=== PATIENT | male | born 1970 | race Caucasian/White ===

== ENCOUNTER → 2017-11-24 10:18 | Outpatient (POV) | payer MEDICAID, SELFPAY | PROVIDERS: Family Provider Emergency Medicine; Visit Provider Dentist | DX: Z00.00 Encounter for general adult medical examination without abnormal findings (principal) ==

== ENCOUNTER → 2018-06-06 15:49 | Outpatient (REF) | payer MEDICAID, SELFPAY ==
[2018-06-06 17:44] LABS: Amphetamine/Metha Screen,Urine Positive ng/mL (<1000); Barbiturates Screen,Urine Negative ng/mL (<200); Benzodiazepines Screen,Urine Negative ng/mL (<200); Cannabinoid Screen,Urine Positive ng/mL (<50); Cocaine Screen,Urine Negative ng/mL (<300); Methadone Screen,Urine Negative ng/mL (<300); Opiate Screen,Urine Positive ng/mL (<300); Phencyclidine Screen,Urine Negative ng/mL (<25)
== END ==
LOC: LAB 15:49
PROVIDERS: Visit Provider Nurse Practitioner Family
DX: Z79.899 Other long term (current) drug therapy (principal)
CPT/HCPCS: 80305

== ENCOUNTER 2020-07-04 01:41 | Emergency (ER) | payer MEDICAID, SELFPAY ==
[2020-07-04 01:42] VITALS: BP 171/98; PULSE 108; RESP 16; TEMP 37; O2SAT 100; BMI 27.1
--- NOTE | 2020-07-04 01:50 | XR_ITS ---
PROCEDURE: XR HAND LT MIN 3V CLINICAL INDICATION: L middle finger swelling (r/o deep space infxn) COMPARISON: No exams were available for comparison FINDINGS: There is a small well-circumscribed calcification along the radial and distal aspect of the middle phalanx of the middle finger and at the volar aspect and radial aspect of the PIP joint suggesting old avulsion injuries. No bony erosive process. Mild osteoarthritic changes are present at the 1st metacarpophalangeal joint. Other findings:Soft tissue swelling noted of the middle finger IMPRESSION: As above, no bony erosive process or radiopaque foreign body apparent Dictated by: Melecio Hsieh MD 07/04/2020 05:31 Melecio Hsieh MD in [place] 07/04/2020 05:31
--- NOTE | 2020-07-04 01:54 | HMH.EDGENADL ---
ED Disposition Clinical Impression: Infection of hand Disposition: Home, Self-Care Condition on Discharge: Good Additional Instructions: Immediately upon discharge, follow-up at Dr. Reynolds's office at 8:30 AM. Do not eat or drink upon discharge from the emergency department. If unable to make that appointment for difficulties following up with Dr. Reynolds's immediately report back to our emergency department as you will need antibiotic prescription at the very least and he may require further intervention. If any worsening pain, fever/chills, other new symptoms prior to following up with Dr. Reynolds immediate return to the emergency department. Referrals: PCP,No [Primary Care Provider] - () Lilibeth Reynolds MD [Physician] - (Immediately report to Dr. Reynolds's office @ 8:30 A.M. today to be seen.) - Critical Care Critical Care Time: No Attestation: On , the high probability of a clinically significant, sudden or life threatening deterioration of the following system(s) required my full and direct attention, intervention and personal management. The time I documented below is in addition to time spent performing reported procedures but includes the following listed in this critical care notation. Medical Decision Making - Medical Records Medical records reviewed: Yes: I reviewed the patient's medical records. - Samir Inquiry Pt receiving controlled substance: No Vital Signs: 07/04/20 01:42 07/04/20 04:24 07/04/20 05:10 Temperature 98.6 F Temperature Source Oral Pulse Rate [Right] 108 H 74 101 H Respiratory Rate 16 16 16 Blood Pressure [Right Arm] 171/98 H 157/93 H 154/96 H Blood Pressure Mean [Right Arm] 122 114 115 Blood Pressure Source [Right Arm] Automatic Cuff Blood Pressure Position [Right Arm] Sitting 02 Sat by Pulse Oximetry 100 100 97 Oxygen Delivery Method Room Air Room Air Room Air - Lab Data Lab Results 07/04/20 02:30: SARS-CoV-2 IgG Ab (Rapid) Negative, SARS-CoV-2 IgM Ab (Rapid) Negative 07/04/20 02:38: WBC 12.1 H, RBC 5.00, Hgb 14.6, Hct 42.5, MCV 85.0, MCH 29.2, MCHC 34.4, RDW 13.6, Plt Count 236, MPV 7.9, Neut % (Auto) 49.5, Lymph % (Auto) 26.6, [place] % (Auto) 6.8, Eos % (Auto) 16.4 H, Baso % (Auto) 0.7, Neut # (Auto) 6.0, Lymph # (Auto) 3.2, [place] # (Auto) 0.8, Eos # (Auto) 2.0 H, Baso # (Auto) 0.1, ESR 10 07/04/20 02:38: Sodium 136, Potassium 3.5, Chloride 99, Carbon Dioxide 29, Anion Gap 11.5, BUN 15, Creatinine 0.70, Estimated Creat Clear 166, Estimated GFR 120, Est GFR ( Amer) 146, Glucose 109 H, Calcium 9.0, C-Reactive Protein 32.4 H Result diagrams: 07/04/20 02:38 07/04/20 02:38 Orders (Tests/Meds): ED MEDICATIONS Generic Name Dose Route Start Last Admin Trade Name Freq PRN Reason Stop Dose Admin Vancomycin HCl 1,750 mg/ 250 mls @ 125 mls/hr 07/04/20 05:19 07/04/20 05:30 Sodium Chloride IV 07/04/20 07:18 125 mls/hr ONCE ONE Administration Protocol Miscellaneous 1 each 07/04/20 05:00 07/04/20 05:11 Vancomycin Consult Request * 08/03/20 04:59 1 each CONSULT PHARMACY [facility] Administration Discontinued Medications Generic Name Dose Route Start Last Admin Trade Name Freq PRN Reason Stop Dose Admin Piperacillin Sod/Tazobactam 50 mls @ 100 mls/hr 07/04/20 05:00 07/04/20 04:57 Sod 3.375 gm/ Sodium Chloride IV 07/04/20 05:29 100 mls/hr Q6H ONE Administration Protocol - Radiology Data #1 Image(s): Hand Image Reviewed: Yes I reviewed the patient's radiology results Left middle finger without obvious bony destruction/abnormality with some edema noted to soft tissue space Medical Decision Narrative: Patient presents the emergency department with left middle finger complaint. There is concern for trauma versus deep space infection. At this time, inflammatory markers will be obtained with an x-ray. X-ray will be obtained to look for signs consistent with deeper space infection/rule out radiopaque f
[2020-07-04 02:46] LABS: Basophils # 0.1 K/mm3 (0-0.2); Basophils % 0.7 % (0.1-2.0); Eosinophils % 16.4 % (0.1-12.0); Hematocrit 42.5 % (42.0-52.0); Hemoglobin 14.6 g/dL (14.1-18.0); Lymphocytes # 3.2 K/mm3 (0.7-4.5); Lymphocytes % 26.6 % (10-50); Mean Corpuscular HGB Conc 34.4 g/dL (31.8-35.4); Mean Corpuscular Hemoglobin 29.2 pg (27.0-31.2); Mean Platelet Volume 7.9 fl (7.4-10.4); Monocytes # 0.8 K/mm3 (0.1-1.0); Monocytes % 6.8 % (1.7-9.3); Neutrophils % 49.5 % (37.0-80.0); Platelet Count 236 K/mm3 (142-424); Red Cell Distribution Width 13.6 % (11.5-17.5); White Blood Count 12.1 K/mm3 (4.8-10.8)
[2020-07-04 02:55] LABS: Anion Gap 11.5 mEq/L (5-15); Blood Urea Nitrogen 15 mg/dl (9-20); Carbon Dioxide 29 mmol/L (22.0-30.0); Chloride 99 mmol/L (98-107); Creatinine Clearance Estimated 166 mL/min (50-200); Estimated Glomerular Filt Rate 120 ml/min (>60); GFR (African American) 146 ML/MIN (>60); Glucose 109 mg/dl (74-100); Potassium 3.5 mmoL/L (3.5-5.1); Sodium 136 mmol/L (136-145)
[2020-07-04 03:23] LABS: Erythrocyte Sedimentation Rate 10 mm/hr (0-15)
[2020-07-04 04:18] LABS: C-Reactive Protein 32.4 mg/L (0-4)
--- NOTE | 2020-07-04 04:23 | PC.NURSE ---
Called lab about results of CRP, advised they were working with the machine now and would have it resulted in a little bit.
[2020-07-04 04:24] VITALS: BP 157/93; PULSE 74; RESP 16; O2SAT 100
[2020-07-04 04:24] LABS: Coronavirus 19 IgG Antibody Negative (Negative); Coronavirus 19 IgM Antibody Negative (Negative)
--- NOTE | 2020-07-04 05:08 | PC.NURSE ---
speaking with Dr. Reynolds
--- NOTE | 2020-07-04 05:09 | PC.NURSE ---
Speaking with Pharmacy for vanc dosing
[2020-07-04 05:10] VITALS: BP 154/96; PULSE 101; RESP 16; O2SAT 97
--- NOTE | 2020-07-04 05:10 | PC.NURSE ---
Carmelina advised dosing for vanc would be 1750mg for one time dosing and then giving 1750mg every 18 hrs
--- NOTE | 2020-07-04 05:41 | PC.NURSE ---
Went to assess pt and noticed his is arm was swelling. Asked pt if his arm was hurting and he woke up and advised it was a little. Attempted to flush and pull back with no success. Vanc stopped and IV removed. Warm compress placed on pt arm and IV started in the other arm at this time. notified.
[2020-07-04 08:32] VITALS: BP 162/94; PULSE 66; RESP 18; TEMP 37; O2SAT 98
== END 2020-07-04 08:34 | disposition home or self-care (01) ==
PROVIDERS: Emergency Provider Emergency Medicine
DX: L03.012 Cellulitis of left finger (principal); I10 Essential (primary) hypertension; Z87.891 Personal history of nicotine dependence; Z79.899 Other long term (current) drug therapy; Z03.818 Encounter for observation for suspected exposure to other biological agents ruled out
CPT/HCPCS: 73130; 80048; 85025; 85651; 86140; 86328; 96365; 96367; 99283; J2543; J3370

== ENCOUNTER 2020-07-08 23:33 | Emergency (ER) | payer MEDICAID, SELFPAY ==
[2020-07-08 23:41] VITALS: BMI 27.1
[2020-07-08 23:42] VITALS: BP 146/97; PULSE 90; RESP 16; TEMP 36.7; O2SAT 97; BMI 27.1
--- NOTE | 2020-07-08 23:42 | XR_ITS ---
PROCEDURE: XR HAND LT MIN 3V CLINICAL INDICATION: Middle finger infection Pain and swelling COMPARISON: CR XR HAND LT MIN 3V from 07/04/2020 FINDINGS: There is prominent soft tissue swelling involving the 3rd finger which is more focal long the ulnar aspect of the distal aspect of the 3rd finger. No obvious radiopaque foreign body or soft tissue gas. No acute fracture or dislocation. No bony erosive process.. Old avulsion injury at the PIP of the 3rd digit and at the radial aspect of the DIP of the 3rd digit as previously described Other findings:None. IMPRESSION: Worsening soft tissue swelling of the 3rd digit which is now more focal along the ulnar and distal aspect of the 3rd digit Dictated by: Melecio Hsieh MD 07/09/2020 03:41 Melecio Hsieh MD in [place] 07/09/2020 03:41
--- NOTE | 2020-07-09 00:05 | HMH.EDEXTP ---
ED Disposition Clinical Impression: Cellulitis and abscess of finger, unspecified Disposition: Home, Self-Care Condition on Discharge: Fair Instructions: DI for Cellulitis -- Adult Additional Instructions: We note discharge and cellulitis of the left middle finger, hand, wrist and forearm We have dressed the wound and we did speak to Dr. Lilibeth Reynolds Orthopedic doctor and apprised her of the findings; We are starting you on IV vancomycin, a strong antibiotic. Please follow-up with her in the morning; Please be advised that is danger of losing your finger or even hand and even risk of from Sepsis if you do not follow up carefully on this infection. Referrals: PCP,No [Primary Care Provider] - - Critical Care Critical Care Time: No Attestation: On 07/08/20, the high probability of a clinically significant, sudden or life threatening deterioration of the following system(s) required my full and direct attention, intervention and personal management. The time I documented below is in addition to time spent performing reported procedures but includes the following listed in this critical care notation. Medical Decision Making - Medical Records Medical records reviewed: Yes: I reviewed the patient's medical records. MR Comment: Patient is a healthy 50-year-old male presenting with left middle finger swelling pain and discharge. Initially when doing lawn work he feels he got a splinter in his left middle finger. Several days later he came to the ER on 07/04/20. X rays had shown no foreign body but because of the infection he was started on IV vancomycin and was referred to dr Lilibeth Reynolds, orthopedic but he did not keep the appointment. Now the finger is much worse with discharge and cellulitis of the finger, hand, wrist and forearm He denies any fever/chills or other systemic signs of illness. Today labs show a white blood cell count of 9.4; X rays show no acute findings I did speak to Dr. Mcelroy showing there and apprised her of the findings she has advised to start patient on vancomycin which we have started she he is also being advised to follow-up with her in the morning I have expressly advised the patient that that he is in danger of losing his finger or even his hand if he is not following up carefully on this infection. Appears to be in no distress and stable and do not see any signs of sepsis no tachycardia or fever and I feel that he can safely be discharged home - Samir Inquiry Pt receiving controlled substance: No Vital Signs: 07/08/20 23:42 07/09/20 00:15 Temperature 98.1 F Temperature Source Oral Pulse Rate [Right Brachial] 90 86 Respiratory Rate 16 16 Blood Pressure [Right Arm] 146/97 H 132/86 Blood Pressure Mean [Right Arm] 113 101 Blood Pressure Source [Right Arm] Automatic Cuff Automatic Cuff Blood Pressure Position [Right Arm] Sitting Sitting 02 Sat by Pulse Oximetry 97 97 Oxygen Delivery Method Room Air Room Air - Lab Data Lab results reviewed: Yes: I reviewed the patient's lab results. Lab Results 07/08/20 23:50: WBC 9.4, RBC 5.65, Hgb 16.3, Hct 47.6, MCV 84.3, MCH 28.8, MCHC 34.2, RDW 13.5, Plt Count 278, MPV 7.7, Neut % (Auto) 69.1, Lymph % (Auto) 17.8, [place] % (Auto) 6.9, Eos % (Auto) 5.5, Baso % (Auto) 0.7, Neut # (Auto) 6.5, Lymph # (Auto) 1.7, [place] # (Auto) 0.7, Eos # (Auto) 0.5 H, Baso # (Auto) 0.1 07/08/20 23:50: Sodium 135 L, Potassium 4.1, Chloride 95 L, Carbon Dioxide 29, Anion Gap 15.1 H, BUN 12, Creatinine 0.70, Estimated Creat Clear 166, Estimated GFR 120, Est GFR ( Amer) 146, Glucose 148 H, Calcium 9.9, Total Bilirubin 0.4, AST 24, ALT 26, Alkaline Phosphatase 78, C-Reactive Protein 46.5 H, Total Protein 8.3 H, Albumin 4.6, Globulin 3.7 H, Albumin/Globulin Ratio 1.2 07/08/20 23:50: Lactate 1.3 Result diagrams: 07/08/20 23:50 07/08/20 23:50 Orders (Tests/Meds): ED MEDICATIONS Generic Name Dose Route Start Last Admin Trade Name Freq PRN Reason Stop D
[2020-07-09 00:15] VITALS: BP 132/86; PULSE 86; RESP 16; O2SAT 97
[2020-07-09 00:18] LABS: Alanine Aminotransferase 26 U/L (12-78); Albumin Level 4.6 g/dl (3.5-5.0); Albumin/Globulin Ratio 1.2 (1.1-1.8); Alkaline Phosphatase 78 U/L (38-126); Anion Gap 15.1 mEq/L (5-15); Aspartate Amino Transferase 24 U/L (17-59); Bilirubin,Total 0.4 mg/dl (0.2-1.3); Blood Urea Nitrogen 12 mg/dl (9-20); Calcium 9.9 mg/dl (8.4-10.2); Carbon Dioxide 29 mmol/L (22.0-30.0); Chloride 95 mmol/L (98-107); Creatinine Clearance Estimated 166 mL/min (50-200); Estimated Glomerular Filt Rate 120 ml/min (>60); GFR (African American) 146 ML/MIN (>60); Globulin 3.7 g/dL (1.3-3.2); Glucose 148 mg/dl (74-100); Lactic Acid 1.3 mmol/L (0.7-2.1); Potassium 4.1 mmoL/L (3.5-5.1); Sodium 135 mmol/L (136-145); Total Protein,Serum 8.3 g/dl (6.3-8.2)
[2020-07-09 00:20] LABS: Basophils # 0.1 K/mm3 (0-0.2); Basophils % 0.7 % (0.1-2.0); Eosinophils # 0.5 K/mm3 (0.0-0.4); Eosinophils % 5.5 % (0.1-12.0); Hematocrit 47.6 % (42.0-52.0); Hemoglobin 16.3 g/dL (14.1-18.0); Lymphocytes # 1.7 K/mm3 (0.7-4.5); Lymphocytes % 17.8 % (10-50); Mean Corpuscular HGB Conc 34.2 g/dL (31.8-35.4); Mean Corpuscular Hemoglobin 28.8 pg (27.0-31.2); Mean Corpuscular Volume 84.3 fl (80-94); Mean Platelet Volume 7.7 fl (7.4-10.4); Monocytes # 0.7 K/mm3 (0.1-1.0); Monocytes % 6.9 % (1.7-9.3); Neutrophils # 6.5 K/mm3 (1.8-7.8); Neutrophils % 69.1 % (37.0-80.0); Platelet Count 278 K/mm3 (142-424); Red Blood Count 5.65 M/mm3 (4.60-6.20); Red Cell Distribution Width 13.5 % (11.5-17.5); White Blood Count 9.4 K/mm3 (4.8-10.8)
[2020-07-09 00:23] LABS: C-Reactive Protein 46.5 mg/L (0-4)
[2020-07-09 01:04] LABS: Erythrocyte Sedimentation Rate 9 mm/hr (0-15)
--- NOTE | 2020-07-09 01:12 | PC.NURSE ---
Jayla spoke with Woody from pharmacy for vanc dosing
[2020-07-09 01:14] VITALS: BP 141/84; PULSE 74; RESP 16; O2SAT 98
[2020-07-09 02:00] VITALS: BP 154/85; PULSE 79; RESP 16; O2SAT 98
[2020-07-09 02:51] VITALS: BP 155/81; PULSE 67; RESP 18; O2SAT 97
[2020-07-09 02:56] VITALS: BP 155/81; PULSE 67; RESP 18; TEMP 36.7; O2SAT 97
== END 2020-07-09 03:10 | disposition home or self-care (01) ==
PROVIDERS: Emergency Provider Emergency Medicine
DX: L03.012 Cellulitis of left finger (principal); I10 Essential (primary) hypertension; F17.210 Nicotine dependence, cigarettes, uncomplicated; R73.9 Hyperglycemia, unspecified
CPT/HCPCS: 73130; 80053; 83605; 85025; 85651; 86140; 87040; 87070; 87186; 87205; 96365; 99284; J3370

== ENCOUNTER 2020-07-10 18:04 | Inpatient (IN) | payer MEDICAID, SELFPAY ==
[2020-07-10] VITALS (10 sets, daily range): BP systolic 125–158; BP diastolic 77–109; PULSE 70–77; RESP 14–18; TEMP 36.6–36.9; O2SAT 94–100; BMI 27.1; BMI 26.6
[2020-07-10 14:09] LABS: MANUAL DIFFERENTIAL MANUAL DIFFERENTIAL (MANUAL DIFF)
[2020-07-10 14:45] LABS: Alanine Aminotransferase 26 U/L (12-78); Albumin Level 4.5 g/dl (3.5-5.0); Albumin/Globulin Ratio 1.5 (1.1-1.8); Alkaline Phosphatase 75 U/L (38-126); Anion Gap 11.2 mEq/L (5-15); Aspartate Amino Transferase 26 U/L (17-59); Bilirubin,Total 0.3 mg/dl (0.2-1.3); Blood Urea Nitrogen 15 mg/dl (9-20); Calcium 9.5 mg/dl (8.4-10.2); Carbon Dioxide 33 mmol/L (22.0-30.0); Chloride 99 mmol/L (98-107); Estimated Glomerular Filt Rate 120 ml/min (>60); GFR (African American) 146 ML/MIN (>60); Globulin 3.1 g/dL (1.3-3.2); Glucose 87 mg/dl (74-100); Potassium 4.2 mmoL/L (3.5-5.1); Sodium 139 mmol/L (136-145); Total Protein,Serum 7.6 g/dl (6.3-8.2)
[2020-07-10 14:47] LABS: Basophils # 0.1 K/mm3 (0-0.2); Eosinophils # 0.5 K/mm3 (0.0-0.4); Eosinophils % 5.3 % (0.1-12.0); Hematocrit 46.5 % (42.0-52.0); Hemoglobin 15.2 g/dL (14.1-18.0); Lymphocytes # 2.1 K/mm3 (0.7-4.5); Lymphocytes % 23.4 % (10-50); Mean Corpuscular HGB Conc 32.7 g/dL (31.8-35.4); Mean Corpuscular Hemoglobin 28.1 pg (27.0-31.2); Mean Platelet Volume 7.4 fl (7.4-10.4); Monocytes # 0.7 K/mm3 (0.1-1.0); Monocytes % 7.4 % (1.7-9.3); Neutrophils # 5.7 K/mm3 (1.8-7.8); Platelet Count 310 K/mm3 (142-424); Red Blood Count 5.41 M/mm3 (4.60-6.20); Red Cell Distribution Width 13.1 % (11.5-17.5)
[2020-07-10 14:57] LABS: C-Reactive Protein 30.6 mg/L (0-4)
[2020-07-10 14:58] LABS: Coronavirus 19 IgG Antibody Negative (Negative); Coronavirus 19 IgM Antibody Negative (Negative)
[2020-07-10 15:24] LABS: Erythrocyte Sedimentation Rate 15 mm/hr (0-15)
[2020-07-10 16:09] LABS: Eosinophils % 3 % (0-3); Lymphocytes % 33 % (10-50); Monocytes % 5 % (2-9); Neutrophils % 59 % (42-76); Platelet Estimate Normal; RBC Morphology Normal; Total Cells Counted 100
--- NOTE | 2020-07-10 19:10 | PC.NURSE ---
PT ARRIVED TO THE FLOOR VIA STRETCHER WITH OR STAFF AT 191
--- NOTE | 2020-07-10 19:36 | HMH.ORTHHP ---
*Admission Date: 07/10/20 *Reason for consult:: L middle finger abscess *History of present illness: 50-year-old [id number] male presents for initial orthopedic evaluation of pain, swelling, redness and drainage from the left middle finger. He initially suffered a splinter to the dorsum of this finger, which he dug out on or around 06/30/2020. 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 He has never had an infection of the finger before. Several days after this he noticed increasing pain and swelling in the finger, so he presented to the emergency department on 07/04/2020. At that time he was given Vancomycin and Zosyn, and discharged home. The ER physician did contact me, and I advised them to instruct the patient to come to my office the following morning n.p.o., in anticipation of I&D that day. The patient did not show that morning, and we were unable to reach him via telephone. Over the following week, the patient's pain, swelling and redness increased to this finger, and he began to spontaneously drain purulent material. He reports wounds with drainage over the dorsum of the middle finger, from the PIP joint distally. The finger is very swollen with limited range of motion and significant pain. He denies any fevers or chills at home. He returned to the emergency department last night, or vancomycin was given and he was again given instructions to see me today for likely I&D. He did arrive today, but did not arrive n.p.o. He reports no prior history of similar infections on the hand and no prior surgeries on the hand. He denies any medical issues and does not have a primary care provider. He said he used to have hypertension that was treated successfully, so he stopped going to the doctor. He is a smoker, denies current drug use though he does have a history of illicit use in the past. He denies any intravenous drug use. He is not currently on any oral antibiotics and denies the use of any baseline prescription medications. He has no known drug allergies. The patient underwent I&D of the L middle finger this evening without complication. This was done with a digital nerve block and IV dilaudid, and the patient tolerated the procedure well. Aerobic and anaerobic cultures were taken of the purulent material drainage from the finger. He was given IV ancef for flakito-operative prophy and started on IV vancomycin, cefepime and flagyl post-operatively after speaking with Dr. Chambers about the best broad-spectrum antimicrobials for this patient. [facility] History I have reviewed the patient's past medical history: Yes Medical History: Reports:: Hypertension Denies:: Cancer, Diabetes Mellitus Type 1, Diabetes Mellitus Type 2, Internal Pacemaker, MRSA, Seizures *Have you ever received a pneumonia vaccine?: No *Have you received a flu vaccine this season?: No Other Medical History: Denies: Blood Transfusion Reaction Laterality Cases: Bilateral: Tonsillectomy Other Surgeries: Yes: Other. No: Pacemaker Amputation: No Fractures: Yes - *Social History Smoking Status: Current every day smoker Tobacco Type: cigarettes # Packs/Day (cigarettes): 1 Alcohol Intake: never Substance Use Type: marijuana Last Used Substance: days (ago) *Occupational Status:: unemployed Housing: apartment Household Members: family *Travel in the last 8 weeks: None Family Hx:: Diabetes, Heart Attack, Hypertension Review of Systems - Review of Systems Review of systems:: pertinent systems reviewed and negative unless documented below Meds Home Medications Medication Instructions Recorded Confirmed Type No Known Home Medications 07/10/20 07/10/20 History Allergies Allergy/AdvReac Type Severity Reaction Status Date / Time No Known Allergies Allergy Verified 07/10/20 13:47 Exam Vital signs and Labs for Last 24 Hours: Temp Pulse Resp BP Pulse Ox 97.8 F 74 18 158/108 H 97 07/10
--- NOTE | 2020-07-10 19:36 | HMH.OPNOTE ---
Date of procedure: 07/10/20 Pre-op Diagnosis:: L middle finger abscess Post-op Diagnosis:: L middle finger abscess Procedure performed:: incision and drainage L middle finger abscess Surgeon:: Lilibeth Reynolds MD Workforce Development Program Director(s):: Lilia Hurtado TOW FEEDER:: Other (none) Anesthesia: regional (digital nerve block), none Estimated blood loss (mL): 10 Clinical Note:: 50-year-old [id number] male presents for initial orthopedic evaluation of pain, swelling, redness and drainage from the left middle finger. He initially suffered a splinter to the dorsum of this finger, which he dug out on or around 06/30/2020. 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 He has never had an infection of the finger before. Several days after this he noticed increasing pain and swelling in the finger, so he presented to the emergency department on 07/04/2020. At that time he was given Vancomycin and Zosyn, and discharged home. The ER physician did contact me, and I advised them to instruct the patient to come to my office the following morning n.p.o., in anticipation of I&D that day. The patient did not show that morning, and we were unable to reach him via telephone. Over the following week, the patient's pain, swelling and redness increased to this finger, and he began to spontaneously drain purulent material. He reports wounds with drainage over the dorsum of the middle finger, from the PIP joint distally. The finger is very swollen with limited range of motion and significant pain. He denies any fevers or chills at home. He returned to the emergency department last night, or vancomycin was given and he was again given instructions to see me today for likely I&D. He did arrive today, but did not arrive n.p.o. He reports no prior history of similar infections on the hand and no prior surgeries on the hand. He denies any medical issues and does not have a primary care provider. He said he used to have hypertension that was treated successfully, so he stopped going to the doctor. He is a smoker, denies current drug use though he does have a history of illicit use in the past. He denies any intravenous drug use. He is not currently on any oral antibiotics and denies the use of any baseline prescription medications. He has no known drug allergies. I discussed treatment options with the patient, and I do not believe local wound care and antibiotics are sufficient to treat this appropriately. I recommend urgent irrigation and debridement in the operating room today. He did not arrive n.p.o., so anesthesia will not be provided; we would have to wait till 10 PM tonight to operate. I believe intravenous pain medication and digital nerve block should be sufficient to do this. I discussed this with the patient, who is in agreement. I discussed the risks of surgery with the patient, including bleeding, infection including superinfection of a new organism or spread of his current infection, failure to eradicate the current infection, postoperative wound healing complications, postoperative stiffness and persistent pain, numbness or tingling in the finger, risk of osteomyelitis, and possible need for future amputation of the finger. I also discussed his risk of continuing infection or wound healing issues as a smoker, and strongly encourage smoking cessation. I also discussed the importance of following up for all postoperative visits and wound care/hand therapy visits. The patient vocalized understanding of all of the above, and provided informed consent for the surgery. Operative findings:: large abscess subcutaneously involving entire dorsum of L middle finger, from nail bed to PIP joint. No involvement of PIP/DIP joints, no involvement of extensor tendon sheath. Distal fingertip did develop a felon as well. Operative note:: The patient was identified in preoperative holding and the L middle finger signed by my
[2020-07-11] VITALS (7 sets, daily range): BP systolic 135–146; BP diastolic 85–94; PULSE 63–86; RESP 14–19; TEMP 36.6–36.7; O2SAT 97–100; BMI 27.1
--- NOTE | 2020-07-11 04:03 | PC.NURSE ---
A&OX4. PT HAS TOLERATED RA WELL THIS SHIFT. PT L MIDDLE FINGER AND HAND WRAPPED. DRESSING CDI. THIS NURSE HAS EXPLAINED TO PT IMPORTANCE OF KEEPING LUE ELEVATED T/O SHIFT. PT HASN'T DONE THE BEST JOB AT FOLLOWING THIS T/O SHIFT, CONTINUING TO BE ON HIS PHONE. PT HAS C/O OF PAIN IN HIS L MIDDLE FINGER T/O SHIFT. BEING TX WITH PRN NORCO AND MORPHIINE PER DEC. ON REASSESSMENT, PT IS IN BED ON HIS CELLPHONE. PT HAS HAD A LARGE APPETITE THIS EVENING. TOLERATING FOOD WELL. PT RECEIVING IV ABX. TOLERATING WELL. PT HAS BEEN UP INDEPENDENTLY TO THE BATHROOM. NO OTHER C/O THUS FAR, VSS WILL CONTINUE TO MONITOR.
[2020-07-11 06:36] LABS: Chloride 100 mmol/L (98-107); Sodium 136 mmol/L (136-145)
[2020-07-11 06:39] LABS: Blood Urea Nitrogen 10 mg/dl (9-20); Calcium 8.9 mg/dl (8.4-10.2); Carbon Dioxide 29 mmol/L (22.0-30.0); Creatinine Clearance Estimated 194 mL/min (50-200); Estimated Glomerular Filt Rate 144 ml/min (>60); GFR (African American) 174 ML/MIN (>60); Glucose 102 mg/dl (74-100)
[2020-07-11 06:44] LABS: Basophils # 0.1 K/mm3 (0-0.2); Basophils % 1.1 % (0.1-2.0); Eosinophils # 0.8 K/mm3 (0.0-0.4); Eosinophils % 9.7 % (0.1-12.0); Hematocrit 43.3 % (42.0-52.0); Hemoglobin 14.5 g/dL (14.1-18.0); Lymphocytes # 2.7 K/mm3 (0.7-4.5); Lymphocytes % 34.9 % (10-50); Mean Corpuscular HGB Conc 33.6 g/dL (31.8-35.4); Mean Corpuscular Hemoglobin 28.9 pg (27.0-31.2); Mean Corpuscular Volume 86.2 fl (80-94); Mean Platelet Volume 7.6 fl (7.4-10.4); Monocytes # 0.6 K/mm3 (0.1-1.0); Monocytes % 7.2 % (1.7-9.3); Neutrophils # 3.6 K/mm3 (1.8-7.8); Platelet Count 274 K/mm3 (142-424); Red Blood Count 5.02 M/mm3 (4.60-6.20); Red Cell Distribution Width 13.4 % (11.5-17.5); White Blood Count 7.7 K/mm3 (4.8-10.8)
--- NOTE | 2020-07-11 07:24 | HMH.HP ---
*Admission Date: 07/10/20 *Chief complaint: Finger infection *History of present illness: Mr. Juarez is a 50-year-old gentleman admitted to orthopedics due to left middle finger infection. See orthopedic note for full history of infection and surgical intervention. He does not follow with primary care and has no reported chronic medical conditions. Medicine consulted to assist in comanagement and guide antibiotic management. In brief, he initially had a splinter that was removed by himself on 06/29/2020. After removing the splinter he developed swelling and pain that progressed to the point he presented to the ER on 07/04/2020. He was given a dose of Vanco and Zosyn and discharged home. He failed to follow-up with Ortho for further assessment and I&D. Swelling and pain progressed with the development of spontaneous drainage. Presented to the ER yesterday due to worsening infection. Taken to the OR for incision and drainage with extensive infection along the length of the finger. Per review and from patient, he denies any previous surgeries, known history of medical conditions aside from hypertension. Not any current medications. He is a smoker, denies current drug use though he does have a history of illicit use in the past. He denies any intravenous drug use. He is not currently on any oral antibiotics and denies the use of any baseline prescription medications. He has no known drug allergies. [facility] History I have reviewed the patient's past medical history: Yes Medical History: Reports:: Hyperlipidemia, Hypertension Denies:: Cancer, Diabetes Mellitus Type 1, Diabetes Mellitus Type 2, Internal Pacemaker, MRSA, Seizures *Have you ever received a pneumonia vaccine?: No *Have you received a flu vaccine this season?: No Other Medical History: Denies: Blood Transfusion Reaction Laterality Cases: Bilateral: Tonsillectomy Other Surgeries: Yes: Other. No: Pacemaker Amputation: No Fractures: Yes - *Social History Last grade of school completed: High school graduate Smoking Status: Current every day smoker Tobacco Type: cigarettes # Packs/Day (cigarettes): 1 Alcohol Intake: never Substance Use Type: denies use Last Used Substance: days (ago) *Occupational Status:: employed Housing: apartment Household Members: family *Travel in the last 8 weeks: None Family Hx:: Diabetes, Heart Attack, Hypertension Review of Systems - Review of Systems Review of systems:: pertinent systems reviewed and negative unless documented below (14 point review of systems performed, pertinent positives and negatives as per HPI) Meds Home Medications Medication Instructions Recorded Confirmed Type No Known Home Medications 07/10/20 07/10/20 History Allergies Allergy/AdvReac Type Severity Reaction Status Date / Time No Known Allergies Allergy Verified 07/10/20 13:47 Exam Vital signs and Labs for Last 24 Hours: Temp Pulse Resp BP Pulse Ox 98.1 F 71 17 138/93 H 100 07/11/20 04:00 07/11/20 04:00 07/11/20 04:00 07/11/20 04:00 07/11/20 04:00 Laboratory Results - last 24 hr 07/10/20 14:08: WBC 9.0, RBC 5.41, Hgb 15.2, Hct 46.5, MCV 86.0, MCH 28.1, MCHC 32.7, RDW 13.1, Plt Count 310, MPV 7.4, Neut % (Auto) 63.0, Lymph % (Auto) 23.4, [place] % (Auto) 7.4, Eos % (Auto) 5.3, Baso % (Auto) 1.0, Neut # (Auto) 5.7, Lymph # (Auto) 2.1, [place] # (Auto) 0.7, Eos # (Auto) 0.5 H, Baso # (Auto) 0.1, Total Counted 100, Neutrophils % (Manual) 59, Lymphocytes % (Manual) 33, Monocytes % (Manual) 5, Eosinophils % (Manual) 3, Platelet Estimate Normal, RBC Morphology Normal, ESR 15 07/10/20 14:08: Sodium 139, Potassium 4.2, Chloride 99, Carbon Dioxide 33 H, Anion Gap 11.2, BUN 15, Creatinine 0.70, Estimated GFR 120, Est GFR ( Amer) 146, Glucose 87, Calcium 9.5, Total Bilirubin 0.3, AST 26, ALT 26, Alkaline Phosphatase 75, C-Reactive Protein 30.6 H D, Total Protein 7.6, Albumin 4.5, Globulin 3.1, Albumin/Globulin Ratio 1.5 07/10/20 14:08: SARS-CoV-2
--- NOTE | 2020-07-11 07:25 | HMH.PHAVTE ---
[facility] Pharmacy VTE Monitoring - Patient Demographics Admission date: 07/10/20 Report Date: 07/11/20 Time: 07:25 Allergies/Adverse Reactions: Patient Allergies No Known Allergies Allergy (Verified 07/10/20 13:47) Height: 1.83 m Weight: 90.889 kg - VTE Risk Labs: VTE Related Lab Results Hgb 14.5 g/dL (14.1-18.0) 07/11/20 06:05 Hct 43.3 % (42.0-52.0) 07/11/20 06:05 Plt Count 274 K/mm3 (142-424) 07/11/20 06:05 BUN 10 mg/dl (9-20) D 07/11/20 06:05 Creatinine 0.60 mg/dl (0.66-1.25) L 07/11/20 06:05 Estimated Creat Clear 194 mL/min (50-200) 07/11/20 06:05 - Prophylaxis VTE Prophylaxis Ordered?: Yes Types of VTE Prophylaxis: IPCS Thigh High Location of Applied Device: Bilateral Lower Extremeties
--- OUTSIDE RECORDS SUMMARY | 2020-07-11 07:26 | XMS_ITS | Continuity of Care Document ---
:1970 Author Organization [facility] Address [address] [address] [place] [address] Phone Care Team Providers Name Role Phone PCP Primary Care Provider Unavailable Ingrid Whitten Attending Provider Unavailable Rodolfo Primary Care Provider Rodolfo Attending Provider Dylan Malave Primary Care Provider Allergies, Adverse Reactions, Alerts No known allergies. Medications No known medications. Problems Active Problems Medical Problem Onset Date Status Cellulitis and abscess of finger, Active unspecified Infection of hand Active Procedures Procedure Date Performed Status Gram Stain July 10, 2020 completed Abscess Culture July 10, 2020 active Incision and Drainage Ortho July 10, 2020 5:32pm comp leted (Left) XR hand LT min 3V July 08, 2020 11:42pm completed Gram Stain July 09, 2020 completed
--- NOTE | 2020-07-11 09:22 | HMH.PHACONS ---
- Pharmacy Consult Date: 07/11/20 Time: 09:22 Referring provider: DR. SIM Reason for Consult:: VANCOMYCIN DOSING Allergies and ADEs:: Allergies Allergy/AdvReac Type Severity Reaction Status Date / Time No Known Allergies Allergy Verified 07/10/20 13:47 Home Medications:: Home Medications Medication Instructions Recorded Confirmed Type No Known Home Medications 07/10/20 07/10/20 History Height: 1.83 m Weight: 90.889 kg Laboratory Results:: Laboratory Results - last 24 hr 07/10/20 14:08: WBC 9.0, RBC 5.41, Hgb 15.2, Hct 46.5, MCV 86.0, MCH 28.1, MCHC 32.7, RDW 13.1, Plt Count 310, MPV 7.4, Neut % (Auto) 63.0, Lymph % (Auto) 23.4, Garza % (Auto) 7.4, Eos % (Auto) 5.3, Baso % (Auto) 1.0, Neut # (Auto) 5.7, Lymph # (Auto) 2.1, Garza # (Auto) 0.7, Eos # (Auto) 0.5 H, Baso # (Auto) 0.1, Total Counted 100, Neutrophils % (Manual) 59, Lymphocytes % (Manual) 33, Monocytes % (Manual) 5, Eosinophils % (Manual) 3, Platelet Estimate Normal, RBC Morphology Normal, ESR 15 07/10/20 14:08: Sodium 139, Potassium 4.2, Chloride 99, Carbon Dioxide 33 H, Anion Gap 11.2, BUN 15, Creatinine 0.70, Estimated GFR 120, Est GFR ( Amer) 146, Glucose 87, Calcium 9.5, Total Bilirubin 0.3, AST 26, ALT 26, Alkaline Phosphatase 75, C-Reactive Protein 30.6 H D, Total Protein 7.6, Albumin 4.5, Globulin 3.1, Albumin/Globulin Ratio 1.5 07/10/20 14:08: SARS-CoV-2 IgG Ab (Rapid) Negative, SARS-CoV-2 IgM Ab (Rapid) Negative 07/11/20 06:05: WBC 7.7, RBC 5.02, Hgb 14.5, Hct 43.3, MCV 86.2, MCH 28.9, MCHC 33.6, RDW 13.4, Plt Count 274, MPV 7.6, Neut % (Auto) 47.0, Lymph % (Auto) 34.9, Garza % (Auto) 7.2, Eos % (Auto) 9.7, Baso % (Auto) 1.1, Neut # (Auto) 3.6, Lymph # (Auto) 2.7, Garza # (Auto) 0.6, Eos # (Auto) 0.8 H, Baso # (Auto) 0.1 07/11/20 06:05: Sodium 136, Potassium 4.0, Chloride 100, Carbon Dioxide 29, Anion Gap 11.0, BUN 10 D, Creatinine 0.60 L, Estimated Creat Clear 194, Estimated GFR 144, Est GFR ( Amer) 174, Glucose 102 H, Calcium 8.9 Medical History: Reports:: Hyperlipidemia, Hypertension Denies:: Cancer, Diabetes Mellitus Type 1, Diabetes Mellitus Type 2, Internal Pacemaker, MRSA, Seizures Assessment and Plan (1) Cellulitis and abscess of finger, unspecified Current visit: No Status: Acute Category: Medical Code(s): L03.019 - Cellulitis of unspecified finger; L02.519 - Cutaneous abscess of unspecified hand - Assessment and plan all Dx Assessment and Plan for all problems:: BASED ON PATIENT FACTORS, RECOMMEND VANCOMYCIN 1500 MG IV Q8H. WILL OBTAIN VANCOMYCIN TROUGH LEVEL PRIOR TO 4TH DOSE. PHARMACY WILL FOLLOW DAILY AND ADJUST APPROPRIATE.
--- NOTE | 2020-07-11 12:49 | HMH.ORTHPN ---
Subjective Date: 07/11/20 Time: 12:00 Principal diagnosis: L middle finger abscess Interval history: The patient is doing well today. Not much pain in the hand overnight, but he has kept it elevated and dressings remain intact. IV antibiotics continue. Gram stain shows moderate gram positive cocci and diplococci; culture results pending. No fevers or chills overnight. PN: Obj Ex Vital signs: Temp Pulse Resp BP Pulse Ox 97.8 F 63 19 138/92 H 99 07/11/20 07:55 07/11/20 07:55 07/11/20 07:55 07/11/20 07:55 07/11/20 07:55 - Constitutional no acute distress - Routine HEENT Exam Head: Present: normocephalic Eye: Present: EOMI ENT: Present: mucous membranes moist - Routine Neck Exam Present: trachea midline - Routine Respiratory Exam Absent: respiratory distress - Routine Cardiovascular Exam Present: RRR - Routine Abdominal Exam Present: soft. Absent: tenderness - Routine Extremities Exam Comments: L hand dressings intact w/o strikethrough dressings removed, L middle finger sutures/dank drain intact diffuse swelling of L middle finger with erythema but no active drainage finger is very tender to touch, patient does not tolerate touch well, unable to perform ROM sensation intact to light touch distally in radial/ulnar digital nerve distributions brisk capillary refill in nail bed and throughout length of L middle finger - Routine Skin Exam Present: warm - Routine Neurological Exam Present: alert, oriented X3, moving all extremities, normal tone, vision grossly intact, hearing grossly intact, normal speech. Absent: sensory deficit, motor deficit, altered mental status - Routine Psychiatric Exam Present: normal affect Progress Note: A&P (1) Cellulitis and abscess of finger, unspecified Status: Acute Current Visit: No Assessment and Plan for All Diagnoses:: 50yo M POD 1 s/p I&D L middle finger abscess -- elevate LUE as much as possible -- pain medication ordered; oral norco with IV morphine for breakthrough -- IV vanc, cefepime and oral flagyl being given; continue until cultures result, will tailor antibiotic choice pending results -- hand was soaked today in dilute peroxide solution (50:50 peroxide:sterile saline) for 5 minutes, then dressed with thin layer of antibiotic ointment and adaptic, covered with dry dressings. Dank left in place, will likely remove tomorrow. Repeat this procedure 2x per day for the next 4-5 days. -- SCDs BLE -- Dr. Chambers on consult for medial evaluation; I recommend the patient establish himself with a PCP -- care management consult for hand therapy referral, wound care and possible antibiotic therapy
--- NOTE | 2020-07-11 17:46 | PC.NURSE ---
PATIENT A&O X4, LUNGS CLEAR, PULSES EQUAL. MD AT BEDSIDE FOR DRESSING CHANGE. ORDERS TO CHANGE BID. ORDERS ARE TO SOAK LEFT MIDDLE FINGER IN A 1:1 RATIO OF HYDROGEN PEROXIDE AND SODIUM CHLORIDE OR STERILE WATER FOR 5 MINUTES. DRY AREA, APPLY WHITE PETROLATUM DRESSING. COVER WITH 4X4, SOFT ROLL AND IRENE BANDAGE. PATIENT COMPLAINED OF PAIN DURING PROCEDURE. PATIENT HAS HAD NO OTHER COMPLAINTS DURING THIS RN SHIFT. NO CONCERNS AT THIS TIME.
--- NOTE | 2020-07-11 19:06 | PC.NURSE ---
report given to kiah
[2020-07-11 21:07] LABS: Vancomycin,Trough 10.2 ug/mL (5.0-10.0)
--- NOTE | 2020-07-11 21:30 | PC.NURSE ---
Pt stated the day shift RN performed two dressing changes one being prior to shift change, therefore pt refused the 2100 dressing change with this RN at this time. Left arm elevated while lying in bed.
--- NOTE | 2020-07-11 21:33 | PC.NURSE ---
Spoke with Maurizio, Flakito. He gave okay to continue administering Holley chua per mar. Will make adjustments in am.
--- NOTE | 2020-07-12 03:52 | PC.NURSE ---
Pt is alert and oriented x4. Pt rested well with eyes closed this shift. Pt c/o moderate pain at beginning of shift. Rating pain at most an 8/10 on pain scale. Administered [place] per mar for pain relief. Upon reassessment pt resting with eyes closed with no further complaints. PERRLA. Left hand checkout supervisor unable to obtain due to dsg in place, right hand checkout supervisor noted strong. Cap Refill < 3 seconds. Bilateral lungs noted clear t/o upon auscultation. Encouraged use of incentive spirometer this shift while awake. Pt demonstrated appropriate use of IS at beginning of shift, tolerated well. Bowel sounds noted active x4. No BM thus far this shift. Urine noted clear and bright yellow in color. Independent use of urinal at bedside. Pt amb independently in room as well, tolerates amb well. Tolerates Ra well with no c/o soa. No edema noted. Dsg to left hand middle digit noted c/d/i. Pt done well with keeping digit elevated while resting in bed. VSS. Remains safe. Call light within reach. Will continue to monitor.
[2020-07-12 05:32] VITALS: BP 141/93; PULSE 62; RESP 18; TEMP 36.6; O2SAT 97; BMI 26.2
[2020-07-12 06:48] LABS: Basophils # 0.1 K/mm3 (0-0.2); Basophils % 1.2 % (0.1-2.0); Eosinophils # 0.6 K/mm3 (0.0-0.4); Eosinophils % 11.1 % (0.1-12.0); Hematocrit 43.2 % (42.0-52.0); Hemoglobin 14.7 g/dL (14.1-18.0); Lymphocytes % 36.1 % (10-50); Mean Corpuscular HGB Conc 34.1 g/dL (31.8-35.4); Mean Corpuscular Hemoglobin 28.8 pg (27.0-31.2); Mean Corpuscular Volume 84.4 fl (80-94); Mean Platelet Volume 7.6 fl (7.4-10.4); Monocytes # 0.4 K/mm3 (0.1-1.0); Monocytes % 7.4 % (1.7-9.3); Neutrophils # 2.5 K/mm3 (1.8-7.8); Neutrophils % 44.1 % (37.0-80.0); Platelet Count 277 K/mm3 (142-424); Red Blood Count 5.13 M/mm3 (4.60-6.20); Red Cell Distribution Width 13.2 % (11.5-17.5); White Blood Count 5.6 K/mm3 (4.8-10.8)
[2020-07-12 06:52] LABS: Chloride 100 mmol/L (98-107); Sodium 136 mmol/L (136-145)
[2020-07-12 06:53] LABS: Potassium 4.3 mmoL/L (3.5-5.1)
[2020-07-12 06:55] LABS: Blood Urea Nitrogen 12 mg/dl (9-20); Creatinine Clearance Estimated 161 mL/min (50-200); Estimated Glomerular Filt Rate 120 ml/min (>60); GFR (African American) 146 ML/MIN (>60)
[2020-07-12 06:56] LABS: Anion Gap 9.3 mEq/L (5-15); Carbon Dioxide 31 mmol/L (22.0-30.0); Glucose 104 mg/dl (74-100)
[2020-07-12 07:02] LABS: C-Reactive Protein 19.1 mg/L (0-4)
[2020-07-12 08:14] VITALS: BP 137/86; PULSE 57; RESP 14; TEMP 36.6; O2SAT 98
--- NOTE | 2020-07-12 09:46 | P.PN_ITS ---
Internal Medicine - PN: Subj *Date: 07/12/20 *Time: 09:46 Interval history: Internal medicine follow-up consult note: Patient ate breakfast well today. Blood pressure under much better control. Pain is about the same in the finger. No other complaints. Exam Vital signs and Labs for Last 24 Hours: Temp Pulse Resp BP Pulse Ox 97.8 F 57 L 14 137/86 98 07/12/20 08:14 07/12/20 08:14 07/12/20 08:14 07/12/20 08:14 07/12/20 08:14 Laboratory Results - last 24 hr 07/11/20 20:16: Vancomycin Trough 10.2 H 07/12/20 06:27: WBC 5.6 D, RBC 5.13, Hgb 14.7, Hct 43.2, MCV 84.4, MCH 28.8, MCHC 34.1, RDW 13.2, Plt Count 277, MPV 7.6, Neut % (Auto) 44.1, Lymph % (Auto) 36.1, Hettinger % (Auto) 7.4, Eos % (Auto) 11.1, Baso % (Auto) 1.2, Neut # (Auto) 2.5, Lymph # (Auto) 2.0, Hettinger # (Auto) 0.4, Eos # (Auto) 0.6 H, Baso # (Auto) 0.1 07/12/20 06:27: Sodium 136, Potassium 4.3, Chloride 100, Carbon Dioxide 31 H, Anion Gap 9.3, BUN 12, Creatinine 0.70, Estimated Creat Clear 161, Estimated GFR 120, Est GFR ( Amer) 146, Glucose 104 H, Calcium 9.0, C-Reactive Protein 19.1 H D I & O for Last 24 hours: Intake & Output 07/09/20 07/10/20 07/11/20 07/12/20 11:59 11:59 11:59 11:59 Intake Total 1551 / 1551 2291 / 2291 Output Total 1200 / 1200 Balance 1551 / 1551 1091 / 1091 Weight 200 lb 6 oz 194 lb 1 oz Microbiology Reports for the Last 24 Hours: Microbiology 07/10/20 17:32 Finger,Left Middle - Abscess Gram Stain - Final 07/10/20 17:32 Finger,Left Middle - Abscess Abscess Culture - Preliminary Gram Positive Cocci 07/10/20 17:32 Finger,Left Little - Abscess Gram Stain - Final 07/10/20 17:32 Finger,Left Little - Abscess Abscess Culture - Preliminary Gram Positive Cocci Narrative: Alert, pleasant, talkative. Heart rate regular. Lungs clear. Abdomen soft. ENT exam clear. Neurologic exam nonfocal. Finger wrapped in fairly extensive bandage. Detailed exam referred to orthopedics. Assessment and Plan (1) Cellulitis and abscess of finger, unspecified Current visit: No Status: Acute Category: Medical Code(s): L03.019 - Cellulitis of unspecified finger; L02.519 - Cutaneous abscess of unspecified hand (2) Elevated blood pressure reading Current visit: Yes Status: Acute Category: Medical Code(s): R03.0 - Elevated blood-pressure reading, without diagnosis of hypertension (3) Infection of hand Current visit: No Status: Acute Category: Medical Code(s): L08.9 - Local infection of the skin and subcutaneous tissue, unspecified - Assessment and plan all Dx Assessment and Plan for all problems:: Continue current antibiotic management. Await culture results. Blood pressure under better control.
--- NOTE | 2020-07-12 11:54 | P.CONPHA_ITS ---
- Pharmacy Consult Date: 07/12/20 Time: 11:54 Referring provider: DR. SIM Reason for Consult:: VANCOMYCIN TROUGH AND DOSE CHANGE Allergies and ADEs:: Allergies Allergy/AdvReac Type Severity Reaction Status Date / Time No Known Allergies Allergy Verified 07/10/20 13:47 Home Medications:: Home Medications Medication Instructions Recorded Confirmed Type No Known Home Medications 07/10/20 07/10/20 History Height: 1.83 m Weight: 88.025 kg Laboratory Results:: Laboratory Results - last 24 hr 07/11/20 20:16: Vancomycin Trough 10.2 H 07/12/20 06:27: WBC 5.6 D, RBC 5.13, Hgb 14.7, Hct 43.2, MCV 84.4, MCH 28.8, MCHC 34.1, RDW 13.2, Plt Count 277, MPV 7.6, Neut % (Auto) 44.1, Lymph % (Auto) 36.1, Mcdonald % (Auto) 7.4, Eos % (Auto) 11.1, Baso % (Auto) 1.2, Neut # (Auto) 2.5, Lymph # (Auto) 2.0, Mcdonald # (Auto) 0.4, Eos # (Auto) 0.6 H, Baso # (Auto) 0.1 07/12/20 06:27: Sodium 136, Potassium 4.3, Chloride 100, Carbon Dioxide 31 H, Anion Gap 9.3, BUN 12, Creatinine 0.70, Estimated Creat Clear 161, Estimated GFR 120, Est GFR ( Amer) 146, Glucose 104 H, Calcium 9.0, C-Reactive Protein 19.1 H D Medical History: Reports:: Hyperlipidemia, Hypertension Denies:: Cancer, Diabetes Mellitus Type 1, Diabetes Mellitus Type 2, Internal Pacemaker, MRSA, Seizures Assessment and Plan (1) Cellulitis and abscess of finger, unspecified Current visit: No Status: Acute Category: Medical Code(s): L03.019 - Cellulitis of unspecified finger; L02.519 - Cutaneous abscess of unspecified hand (2) Elevated blood pressure reading Current visit: Yes Status: Acute Category: Medical Code(s): R03.0 - Elevated blood-pressure reading, without diagnosis of hypertension (3) Infection of hand Current visit: No Status: Acute Category: Medical Code(s): L08.9 - Local infection of the skin and subcutaneous tissue, unspecified - Assessment and plan all Dx Assessment and Plan for all problems:: BASED ON PATIENT'S VANCOMYCIN TROUGH LEVEL OF 10.2 MCG/ML, RECOMMEND INCREASING VANCOMYCIN DOSE TO 1750 MG Q8H AT THIS TIME.
[2020-07-12 16:00] VITALS: BP 140/91; PULSE 63; RESP 16; TEMP 36.9; O2SAT 99
--- NOTE | 2020-07-12 17:42 | PC.NURSE ---
CHRIS RN HEARD SCREAMING COMING FROM PATIENT'S ROOM. UPON ENTERING PATIENT'S VISITOR AND SON WERE LEAVING THE ROOM AND PATIENT'S CELL PHONE WAS IN PIECES SCATTERED AROUND THE ROOM. THIS RN ALONG WITH MARITZA RN INQUIRED TO WHAT HAPPENED IN ROOM. PATIENT STATED THAT HIS CHILD'S MOTHER HAS ACCUSED HIM OF HAVING SEVERAL WOMEN VISIT HIM IN THE ROOM. WE QUESTIONED PATIENT TO ASSURE HE WAS NOT THINKING OF HARMING HIMSELF. PATIENT STATED NO, HE IS JUST VERY ANGRY, THAT HE HAS BEEN DEALING WITH THIS FOR 7YRS, ALWAYS IN FRONT OF HIS SON. WE OFFERED PATIENT TO HAVE SOMEONE TO SPEAK TO, PATIENT REFUSED. THIS RN RE ASSESSED PATIENT, PATIENT WAS STANDING AT WINDOW LOOKING INTO PARKING LOT AND STATED THAT HE WAS FINE. NO CONCERNS AT THIS TIME.
[2020-07-12 20:00] VITALS: BP 138/79; PULSE 68; RESP 16; TEMP 36.4; O2SAT 96
--- NOTE | 2020-07-12 21:50 | HMH.ORTHPN ---
Subjective Date: 07/12/20 Time: 10:10 Principal diagnosis: L middle finger abscess Interval history: POST OP S/P I&D of LF Left hand. C/O pain with dressing changes. O--awake , alert, mild discomfort. Morphine given prior to dressing change. dank removed w/o difficulty. Clinically improved from initial photos. Cultures show gram + cocci . ID of organism pending. A--stable post op G+ infection which seems to be responding to I&D and abx. P-- continue to elevate when possible, cont current Abx pending final lab results and sensitivity. Do not anticipate return to OR at this point. PN: Obj Ex Vital signs: Temp Pulse Resp BP Pulse Ox 98.5 F 63 16 140/91 H 99 07/12/20 16:00 07/12/20 16:00 07/12/20 16:00 07/12/20 16:00 07/12/20 16:00 Progress Note: A&P (1) Cellulitis and abscess of finger, unspecified Status: Acute Current Visit: No (2) Elevated blood pressure reading Status: Acute Current Visit: Yes (3) Infection of hand Status: Acute Current Visit: No
[2020-07-13 03:59] VITALS: BP 145/85; PULSE 63; RESP 14; TEMP 36.6; O2SAT 99
[2020-07-13 05:00] VITALS: BMI 26.6
--- NOTE | 2020-07-13 06:01 | PC.NURSE ---
Pt is alert and oriented x4. Rested well with eyes closed t/o shift. PERRLA. Unable to obtain hand injection mold technician to left hand due to dsg in place. Rihgt hand noted with strong culinary assistant. Cap reill < 3 seconds. Minimal c/o pain during dsg change. No further c/o pain after administration of [place] and Morphine per dec. Pt rated pain at most an 8/10 on pain scale. Upon reassessment pt noted resting with eyes closed. Pt tolerated dsg change well. LUE noted elevated on pillows while lying in bed. Tolerated RA well with no c/o SOA. Amb independently to and from bathroom. Use of urine at bedside as well. Urine noted clear and bright yellow in color. VSS. remains safe. Call light within reach. Will continue to monitor.
--- NOTE | 2020-07-13 06:31 | PC.NURSE ---
Placed pt in contact precautions for positive staph auerus of the left middle finger and left little finger abscess.
[2020-07-13 07:42] VITALS: BP 136/83; PULSE 57; RESP 17; TEMP 36.5; O2SAT 98
--- NOTE | 2020-07-13 08:16 | HMH.ACPN2 ---
Internal Medicine - PN: Subj *Date: 07/13/20 *Time: 08:16 Interval history: Orthopedic note from yesterday reviewed. Culture results have returned and are reviewed. Exam Vital signs and Labs for Last 24 Hours: Temp Pulse Resp BP Pulse Ox 97.7 F 57 L 17 136/83 98 07/13/20 07:42 07/13/20 07:42 07/13/20 07:42 07/13/20 07:42 07/13/20 07:42 I & O for Last 24 hours: Intake & Output 07/10/20 07/11/20 07/12/20 07/13/20 11:59 11:59 11:59 11:59 Intake Total 1551 / 1551 2291 / 2291 3160 / 3160 Output Total 1200 / 1200 1400 / 1400 Balance 1551 / 1551 1091 / 1091 1760 / 1760 Weight 200 lb 6 oz 194 lb 1 oz 196 lb 7 oz Microbiology Reports for the Last 24 Hours: Microbiology 07/10/20 17:32 Finger,Left Middle - Abscess Gram Stain - Final 07/10/20 17:32 Finger,Left Middle - Abscess Abscess Culture - Final Staphylococcus aureus 07/10/20 17:32 Finger,Left Little - Abscess Gram Stain - Final 07/10/20 17:32 Finger,Left Little - Abscess Abscess Culture - Final Staphylococcus aureus Narrative: Patient sleeping comfortably. ENT exam clear. Cardiac exam unremarkable. Lungs have good air movement. Abdomen soft. No skin rash, no neurologic deficits. Finger remains wrapped. Orthopedic exam noted. Assessment and Plan (1) Cellulitis and abscess of finger, unspecified Current visit: No Status: Acute Category: Medical Code(s): L03.019 - Cellulitis of unspecified finger; L02.519 - Cutaneous abscess of unspecified hand (2) Elevated blood pressure reading Current visit: Yes Status: Acute Category: Medical Code(s): R03.0 - Elevated blood-pressure reading, without diagnosis of hypertension (3) Infection of hand Current visit: No Status: Acute Category: Medical Code(s): L08.9 - Local infection of the skin and subcutaneous tissue, unspecified - Assessment and plan all Dx Assessment and Plan for all problems:: Blood pressure stable. No changes. Cellulitis from finger reviewed-cultures show methicillin sensitive Staphylococcus. Coverage changed to clindamycin and nafcillin intravenously.
--- NOTE | 2020-07-13 10:55 | HMH.ACPN ---
Internal Medicine - PN: Subj *Date: 07/13/20 *Time: 10:55 Exam Vital signs and Labs for Last 24 Hours: Temp Pulse Resp BP Pulse Ox 97.7 F 57 L 17 136/83 98 07/13/20 07:42 07/13/20 07:42 07/13/20 07:42 07/13/20 07:42 07/13/20 07:42 I & O for Last 24 hours: Intake & Output 07/10/20 07/11/20 07/12/20 07/13/20 23:59 23:59 23:59 23:59 Intake Total 2030 2291 / 2411 2680 / 2680 Output Total 1200 / 1700 1400 / 1400 Balance 2031 / 1231 1091 / 711 1280 / 1280 Weight 88.932 kg 90.889 kg 88.025 kg 89.103 kg Microbiology Reports for the Last 24 Hours: Microbiology 07/10/20 17:32 Finger,Left Middle - Abscess Gram Stain - Final 07/10/20 17:32 Finger,Left Middle - Abscess Abscess Culture - Final Staphylococcus aureus 07/10/20 17:32 Finger,Left Little - Abscess Gram Stain - Final 07/10/20 17:32 Finger,Left Little - Abscess Abscess Culture - Final Staphylococcus aureus Assessment and Plan (1) Cellulitis and abscess of finger, unspecified Current visit: No Status: Acute Category: Medical Code(s): L03.019 - Cellulitis of unspecified finger; L02.519 - Cutaneous abscess of unspecified hand (2) Elevated blood pressure reading Current visit: Yes Status: Acute Category: Medical Code(s): R03.0 - Elevated blood-pressure reading, without diagnosis of hypertension (3) Infection of hand Current visit: No Status: Acute Category: Medical Code(s): L08.9 - Local infection of the skin and subcutaneous tissue, unspecified The patient's infection will respond to the chosen ABx?: Yes Is the patient receiving the right drug, dose, and route?: Yes Could a more targeted ABx be ordered?: No ( CHANGED TO NAFCILLIN AND CLINDAMYCIN. MSSA + WOUND ON FINGER.)
--- NOTE | 2020-07-13 13:25 | HMH.ORTHPN ---
Subjective Date: 07/13/20 Time: 09:40 Principal diagnosis: L middle finger abscess Interval history: Cultures show MRSA. Abx changed to Clindamycin and Nafcillin per Dr. Crenshaw. Clinically improving and attempting to be complicant with hand elevation. Dressing clean and dry. Pt sleeping at present. Impression. Stable with finger infxn due to MRSA, s/p extensive I&D due to multifocal abscess. Plan. Continue levation and current Abx with dressing change later today. Appreciate Dr. Crenshaw's assitance. PN: Obj Ex Vital signs: Temp Pulse Resp BP Pulse Ox 97.7 F 57 L 17 136/83 98 07/13/20 07:42 07/13/20 07:42 07/13/20 07:42 07/13/20 07:42 07/13/20 07:42 Progress Note: A&P (1) Cellulitis and abscess of finger, unspecified Status: Acute Current Visit: No (2) Elevated blood pressure reading Status: Acute Current Visit: Yes (3) Infection of hand Status: Acute Current Visit: No
[2020-07-13 16:00] VITALS: BP 138/43; PULSE 74; RESP 18; TEMP 37; O2SAT 99
--- NOTE | 2020-07-13 19:43 | PC.NURSE ---
PATIENT SLEPT FOR MOST OF THIS RN SHIFT. THIS RN ENCOURAGED PATIENT TO SHOWER. PATIENT STATED, NO I DON'T HAVE CLEAN CLOTHES. THIS RN OFFERED CLOTHES FROM OUR STORAGE. PATIENT AGREED. THIS RN REMOVED OLD DRESSING, SMALL AMOUNT OF BLOODY DRAINAGE ON DRESSING. NOTED. SUTURES INTACT. AREAS OF FINGER WERE WHITE WITH THICK BLOOD NOTED. THIS RN SOAKED FINGER IN 1:1 RATIO OF HYDROGEN PEROXIDE AND NS. THIS RN DRIED WOUND, APPLIED ANTIBIOTIC OINTMENT, APPLIED VASELINE GAUZE , WRAPPED WITH ROLL GAUZE AND SECURED WITH IRENE BANDAGE. PATIENT TOLERATED WELL.
[2020-07-13 20:00] VITALS: BP 160/99; PULSE 63; RESP 18; TEMP 36.8; O2SAT 96
--- NOTE | 2020-07-13 23:00 | PC.NURSE ---
Pt refused for this RN to provide wound care at 2200 this shift. Denies pain when asked. States he will just do it in the morning it is fine right now . Encouraged pt to participate in the BID wound care for adequate wound healing. Pt continued to refuse. LUE elevated on pillows at this time. Dsg noted C/D/I.
--- NOTE | 2020-07-14 02:59 | PC.NURSE ---
Pt is alert and oriented x4. No acute changes noted from previous shift. Pt rested with eyes closed majority of the shift. Pt stated to this RN when he is not working he sleeps a lot . Mild pain noted at beginning of shift. Administered [place] per dec. Upon reassessment pt noted resting with eyes closed, no further complaints. PERRLA. Refused dsg change this shift. Left hand remains elevated t/o night on pillows. Tolerated RA well with no c/o soa. Bilateral lung sounds noted clear t/o upon auscultation. Active bowel sounds noted in all 4 quads. Pt noted with excellent appetite, tolerates diet well. No edema noted. Adequate urine output noted per urinal. Urine clear and bright yellow in color. No bm thus far this shift. VSS. Remains safe. Call light within reach. Will continue to monitor.
[2020-07-14 03:49] VITALS: BP 135/71; PULSE 62; RESP 14; TEMP 36.7; O2SAT 97
[2020-07-14 05:00] VITALS: BMI 26.2
[2020-07-14 07:47] VITALS: BP 143/83; PULSE 62; RESP 18; TEMP 36.7; O2SAT 97
[2020-07-14 09:28] LABS: Basophils # 0.1 K/mm3 (0-0.2); Basophils % 0.9 % (0.1-2.0); Eosinophils # 0.5 K/mm3 (0.0-0.4); Eosinophils % 5.9 % (0.1-12.0); Hematocrit 47.7 % (42.0-52.0); Hemoglobin 16.4 g/dL (14.1-18.0); Lymphocytes # 1.8 K/mm3 (0.7-4.5); Mean Corpuscular HGB Conc 34.3 g/dL (31.8-35.4); Mean Corpuscular Hemoglobin 28.7 pg (27.0-31.2); Mean Corpuscular Volume 83.8 fl (80-94); Mean Platelet Volume 7.6 fl (7.4-10.4); Monocytes # 0.5 K/mm3 (0.1-1.0); Monocytes % 6.7 % (1.7-9.3); Neutrophils # 5.2 K/mm3 (1.8-7.8); Neutrophils % 64.5 % (37.0-80.0); Platelet Count 326 K/mm3 (142-424); Red Blood Count 5.69 M/mm3 (4.60-6.20); Red Cell Distribution Width 13.4 % (11.5-17.5)
--- NOTE | 2020-07-14 09:31 | SW/DCPLANNER ---
Addendum entered by Isela Hou 07/15/20 06:50: SET UP PATIENT WITH OUR OUTPATIENT DEPT FOR WOUND CARE AND HAND THERAPY SINCE NO COMPANY IN [place] WOULD TAKE HIM.. HE WAS INSTRUCTED ON COMING BACK HERE BY THE NURSE AND ENCOURAGED HIM TO MAKE SURE HE GETS CARE FOR HIS HAND IF NOT THE ILL EFFECTS COULD BE AN AMPUTATION... PATIENT DISCHARGED YESTERDAY AFTERNOON LATE... Addendum entered by Isela Hou 07/14/20 14:56: HEAD SHIPPER CALLED A COUPLE OF PLACES IN [place] TO SEE IF THEY CAN DO HAND THERAPY AND WOUND CARE... NEITHER [facility] NOR [facility] TAKES HIS INSURANCE.. SPOKE WITH DR SIM AND SHE WANTS HIM TO COME BACK TO OUR OUTPATIENT DEPT AND HAVE DSG CHANGES DAILY... HE STATED HIS MOTHER IS COMING TO GET HIM... Addendum entered by Isela Hou 07/14/20 13:45: ATTEMPTED TO GET AN APPT WITH [facility] BUT THEY KEPT SENDING ME TO ANOTHER DEPT AND I GAVE THE NUMBER TO THE HEAD SHIPPER TO SEE IF SHE CAN GET AN APPT.. WAITING TO HEAR BACK. Addendum entered by Isela Hou 07/14/20 11:55: WENT IN TO SEE PATIENT TODAY AND ASKED HIM ABOUT HIS DISCHARGE PLAN AND I WAS GOING TO SET HIM UP WITH HOME HEALTH AND HE STATED HE DOES NOT HAVE A HOME AND DOESN'T KNOW WHERE HE'S GOING.. I HAVE ASKED HIM TO CALL HIS MOTHER AND SEE IF HE CAN GO THERE... WILL NEED TO KNOW TO SET UP HIS HOME HEALTH.. WAITING ON HIM TO LET ME KNOW.. Original Note: RECEIVED REFERRAL FOR THIS PATIENT FOR WOUND CARE SUPPLIES AND ANTIBIOTICS....I HAVE HAD THE REFERRAL BUT WAITING TO SEE IF PATIENT IS GOING TO REQUIRE IV ANTIBIOTICS AND EXACTLY WHAT THE DRESSING CHANGES WOULD BE... ONCE HE IS SEEN AND ORDERS ARE WRITTEN I WILL SPEAK WITH PATIENT....
[2020-07-14 09:34] LABS: Chloride 100 mmol/L (98-107); Potassium 4.2 mmoL/L (3.5-5.1); Sodium 136 mmol/L (136-145)
[2020-07-14 09:37] LABS: Blood Urea Nitrogen 16 mg/dl (9-20); Creatinine Clearance Estimated 140 mL/min (50-200); Estimated Glomerular Filt Rate 103 ml/min (>60); GFR (African American) 125 ML/MIN (>60)
[2020-07-14 09:38] LABS: Anion Gap 11.2 mEq/L (5-15); Calcium 9.5 mg/dl (8.4-10.2); Carbon Dioxide 29 mmol/L (22.0-30.0); Glucose 109 mg/dl (74-100)
[2020-07-14 09:42] LABS: C-Reactive Protein 6.2 mg/L (0-4)
--- NOTE | 2020-07-14 13:03 | HMH.ORTHPN ---
Subjective Date: 07/14/20 Time: 12:00 Principal diagnosis: L middle finger abscess Interval history: The finger is improved this morning, though the patient has been refusing the nighttime soaks/dressing changes. No fevers/chills reported, no drainage noted from the finger. Cultures positive for MSSA, patient changed to IV clindamycin and nafcillcin based on susceptibilities. Care management has been discussing wound care options with him, and he doesn't believe his home is a good place for home health to visit. He lives with friends and is not sure of their address. His mother lives in assisted living and cannot house him. PN: Obj Ex Vital signs: Temp Pulse Resp BP Pulse Ox 98.1 F 62 18 143/83 H 97 07/14/20 07:47 07/14/20 07:47 07/14/20 07:47 07/14/20 07:47 07/14/20 07:47 - Constitutional no acute distress - Routine HEENT Exam Head: Present: normocephalic Eye: Present: EOMI ENT: Present: mucous membranes moist - Routine Neck Exam Present: trachea midline - Routine Respiratory Exam Absent: respiratory distress - Routine Cardiovascular Exam Present: RRR - Routine Abdominal Exam Present: soft. Absent: tenderness - Routine Extremities Exam Comments: L hand dressings intact w/o strikethrough dressings removed, L middle finger sutures intact diffuse swelling of L middle finger with erythema but no active drainage --> erythema improving finger is tender to touch, patient does not tolerate touch well, unable to perform ROM sensation intact to light touch distally in radial/ulnar digital nerve distributions brisk capillary refill in nail bed and throughout length of L middle finger - Routine Skin Exam Present: warm - Routine Neurological Exam Present: alert, oriented X3, moving all extremities, normal tone, vision grossly intact, hearing grossly intact, normal speech. Absent: sensory deficit, motor deficit, altered mental status - Routine Psychiatric Exam Present: normal affect Progress Note: A&P (1) Cellulitis and abscess of finger, unspecified Status: Acute Current Visit: No (2) Elevated blood pressure reading Status: Acute Current Visit: Yes (3) Infection of hand Status: Acute Current Visit: No Assessment and Plan for All Diagnoses:: 50yo M POD 4 s/p I&D L middle finger abscess -- elevate LUE as much as possible -- pain medication ordered; oral norco with IV morphine for breakthrough -- IV vanc, cefepime and oral flagyl given post-op --> changed to IV nafcillin and clindamycin based on culture results positive for MSSA sensitive to them both. After discussion with pharmacy patient will be discharged on oral clindamycin and dicloxacillin for 10 days. -- will arrange for patient to see hand therapy after discharge to continue treatment/wound care -- f/u with me in clinic this Tuesday07/18/20
--- NOTE | 2020-07-14 14:40 | HMH.DCSUM ---
General - General Admission date:: 07/10/20 Discharge date: 07/14/20 HPI HPI: 50-year-old [id number] male presents for initial orthopedic evaluation of pain, swelling, redness and drainage from the left middle finger. He initially suffered a splinter to the dorsum of this finger, which he dug out on or around 06/30/2020. 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 He has never had an infection of the finger before. Several days after this he noticed increasing pain and swelling in the finger, so he presented to the emergency department on 07/04/2020. At that time he was given Vancomycin and Zosyn, and discharged home. The ER physician did contact me, and I advised them to instruct the patient to come to my office the following morning n.p.o., in anticipation of I&D that day. The patient did not show that morning, and we were unable to reach him via telephone. Over the following week, the patient's pain, swelling and redness increased to this finger, and he began to spontaneously drain purulent material. He reports wounds with drainage over the dorsum of the middle finger, from the PIP joint distally. The finger is very swollen with limited range of motion and significant pain. He denies any fevers or chills at home. He returned to the emergency department last night, or vancomycin was given and he was again given instructions to see me today for likely I&D. He did arrive today, but did not arrive n.p.o. He reports no prior history of similar infections on the hand and no prior surgeries on the hand. He denies any medical issues and does not have a primary care provider. He said he used to have hypertension that was treated successfully, so he stopped going to the doctor. He is a smoker, denies current drug use though he does have a history of illicit use in the past. He denies any intravenous drug use. He is not currently on any oral antibiotics and denies the use of any baseline prescription medications. He has no known drug allergies. The patient underwent I&D of the L middle finger this evening without complication. This was done with a digital nerve block and IV dilaudid, and the patient tolerated the procedure well. Aerobic and anaerobic cultures were taken of the purulent material drainage from the finger. He was given IV ancef for flakito-operative prophy and started on IV vancomycin, cefepime and flagyl post-operatively after speaking with Dr. Chambers about the best broad-spectrum antimicrobials for this patient. Hospital Course Hospital Course: The patient did well throughout his stay, though refused some dressing changes. At least 1 dilute peroxide/water soak was done daily despite this. He had no fevers or chills, and CRP declined throughout admission. Culture resulted MSSA and antibiotics were tailored according to susceptibilities. IV nafcillin and clindamycin were started. On POD 4 he was appropriate for d/c home. Attempts were made to arrange outpatient wound care and hand therapy with [facility] and [facility] hand therapy but neither take his insurance. He is not homebound and wound not qualify for home health PT. He will be set up with [facility] outpatient wound care tomorrow. At discharge he was prescribed [place] 10/325mg for pain as well as clindamycin 300mg TID and dicloxacillin 500mg QID, both for 10 days. Objective Vital signs: Temp Pulse Resp BP Pulse Ox 98.1 F 62 18 143/83 H 97 07/14/20 07:47 07/14/20 07:47 07/14/20 07:47 07/14/20 07:47 07/14/20 07:47 no acute distress - *Routine HEENT Exam Head: Present: normocephalic Eye: Present: EOMI ENT: Present: mucous membranes moist - *Routine Neck Exam Present: trachea midline - *Routine Respiratory Exam Absent: respiratory distress - *Routine Cardiovascular Exam Present: RRR - *Routine Abdominal Exam Present: soft. Absent: tenderness - *Routine Extremities Exam C
== END 2020-07-14 14:55 | disposition home or self-care (01) | DRG 603 ==
LOC: 2ND 18:06
PROVIDERS: Internal Medicine Adolescent Medicine; Admitting Provider Orthopaedic Surgery; PCP Emergency Medicine; Visit Provider Orthopaedic Surgery
PROC: 0H9GXZZ Drainage of Left Hand Skin, External Approach (ICD-10-PCS; principal; 2020-07-10 16:00)
DX: L02.512 Cutaneous abscess of left hand (principal); L03.012 Cellulitis of left finger; B95.61 Methicillin susceptible Staphylococcus aureus infection as the cause of diseases classified elsewhere; Z72.0 Tobacco use; I10 Essential (primary) hypertension; E78.5 Hyperlipidemia, unspecified; Z59.1 Inadequate housing
CPT/HCPCS: 26011; 36415; 80048; 80053; 80202; 85007; 85014; 85018; 85025; 85048; 85049; 85651; 86140; 86328; 87070; 87075; 87077; 87186; 87205; J0692; J3370

== ENCOUNTER → 2020-07-18 09:37 | Outpatient (CLI) | payer MEDICAID, SELFPAY ==
[2020-07-18 09:42] LABS: MANUAL DIFFERENTIAL MANUAL DIFFERENTIAL (MANUAL DIFF)
[2020-07-18 10:28] LABS: Basophils # 0.1 K/mm3 (0-0.2); Basophils % 1.1 % (0.1-2.0); Eosinophils # 0.4 K/mm3 (0.0-0.4); Eosinophils % 4.8 % (0.1-12.0); Hematocrit 46.1 % (42.0-52.0); Hemoglobin 15.4 g/dL (14.1-18.0); Lymphocytes # 2.5 K/mm3 (0.7-4.5); Lymphocytes % 31.9 % (10-50); Mean Corpuscular HGB Conc 33.5 g/dL (31.8-35.4); Mean Corpuscular Hemoglobin 28.9 pg (27.0-31.2); Mean Corpuscular Volume 86.4 fl (80-94); Mean Platelet Volume 7.5 fl (7.4-10.4); Monocytes # 0.6 K/mm3 (0.1-1.0); Neutrophils # 4.4 K/mm3 (1.8-7.8); Neutrophils % 55.2 % (37.0-80.0); Platelet Count 350 K/mm3 (142-424); Red Blood Count 5.33 M/mm3 (4.60-6.20); Red Cell Distribution Width 13.9 % (11.5-17.5); White Blood Count 7.9 K/mm3 (4.8-10.8)
[2020-07-18 11:02] LABS: Erythrocyte Sedimentation Rate 6 mm/hr (0-15)
[2020-07-18 11:29] LABS: Eosinophils % 3 % (0-3); Lymphocytes % 33 % (10-50); Monocytes % 8 % (2-9); Neutrophils % 56 % (42-76); Nucleated Red Blood Cells 1; Platelet Estimate Normal; RBC Morphology Normal; Total Cells Counted 100
[2020-07-18 12:18] LABS: C-Reactive Protein 4.7 mg/L (0-4)
== END ==
PROVIDERS: Visit Provider Orthopaedic Surgery
DX: L02.519 Cutaneous abscess of unspecified hand (principal); L03.019 Cellulitis of unspecified finger; L08.9 Local infection of the skin and subcutaneous tissue, unspecified
CPT/HCPCS: 36415; 85007; 85014; 85018; 85048; 85049; 85651; 86140

== ENCOUNTER 2021-01-23 12:13 | Emergency (ER) | payer MEDICAID, SELFPAY ==
[2021-01-23 12:50] VITALS: BP 142/95; PULSE 77; RESP 19; TEMP 37; O2SAT 98; BMI 25.7
[2021-01-23 14:07] VITALS: BP 150/101; PULSE 67; RESP 18; TEMP 36.9; O2SAT 99; BMI 25.7
[2021-01-23 14:20] LABS: Alanine Aminotransferase 26 U/L (12-78); Albumin Level 4.6 g/dl (3.5-5.0); Albumin/Globulin Ratio 1.5 (1.1-1.8); Alkaline Phosphatase 71 U/L (38-126); Anion Gap 11.9 mEq/L (5-15); Aspartate Amino Transferase 28 U/L (17-59); Basophils # 0.1 K/mm3 (0-0.2); Basophils % 1.1 % (0.1-2.0); Bilirubin,Total 0.3 mg/dl (0.2-1.3); Blood Urea Nitrogen 17 mg/dl (9-20); Calcium 9.3 mg/dl (8.4-10.2); Carbon Dioxide 30 mmol/L (22.0-30.0); Chloride 98 mmol/L (98-107); Creatinine Clearance Estimated 122 mL/min (50-200); Eosinophils # 1.4 K/mm3 (0.0-0.4); Eosinophils % 17.9 % (0.1-12.0); Estimated Glomerular Filt Rate 90 ml/min (>60); GFR (African American) 109 ML/MIN (>60); Globulin 3.1 g/dL (1.3-3.2); Glucose 88 mg/dl (74-100); Hematocrit 45.9 % (42.0-52.0); Lymphocytes # 2.4 K/mm3 (0.7-4.5); Lymphocytes % 31.1 % (10-50); Mean Corpuscular HGB Conc 32.8 g/dL (31.8-35.4); Mean Corpuscular Hemoglobin 27.8 pg (27.0-31.2); Mean Corpuscular Volume 84.7 fl (80-94); Mean Platelet Volume 7.5 fl (7.4-10.4); Monocytes # 0.5 K/mm3 (0.1-1.0); Monocytes % 5.8 % (1.7-9.3); Neutrophils # 3.4 K/mm3 (1.8-7.8); Neutrophils % 44.1 % (37.0-80.0); Platelet Count 266 K/mm3 (142-424); Potassium 3.9 mmoL/L (3.5-5.1); Red Blood Count 5.42 M/mm3 (4.60-6.20); Red Cell Distribution Width 13.8 % (11.5-17.5); Sodium 136 mmol/L (136-145); Total Protein,Serum 7.7 g/dl (6.3-8.2); White Blood Count 7.7 K/mm3 (4.8-10.8)
--- NOTE | 2021-01-23 14:43 | HMH.EDWNDL ---
ED Disposition Clinical Impression: Cellulitis and abscess of foot Disposition: Home, Self-Care Condition on Discharge: Good Instructions: DI for Laceration Repair Additional Instructions: Take antibiotics as prescribed with your next dose later this evening at around 11 PM. Return to the emergency department if you develop fever or worsening of symptoms. Follow-up with primary care provider in 2 to 3 days for reevaluation. Prescriptions: Sulfamethoxazole/Trimethoprim [Bactrim DS tablet] 1 each PO BID #14 tab Prescription Printed cephALEXin [Cephalexin 500mg Tab] 500 mg PO QID #28 tab Prescription Printed Referrals: Alireza Malave MD [Staff Physician] - 3 days - Critical Care Critical Care Time: No Attestation: On 01/23/21, the high probability of a clinically significant, sudden or life threatening deterioration of the following system(s) required my full and direct attention, intervention and personal management. The time I documented below is in addition to time spent performing reported procedures but includes the following listed in this critical care notation. Medical Decision Making - Medical Records Medical records reviewed: Yes: I reviewed the patient's medical records. - Samir Inquiry Pt receiving controlled substance: No Vital Signs: 01/23/21 12:50 01/23/21 14:07 Temperature 98.6 F 98.4 F Temperature Source Oral Oral Pulse Rate [Left Brachial] 77 67 Respiratory Rate 19 18 Blood Pressure [Left Arm] 142/95 H 150/101 H Blood Pressure Mean [Left Arm] 110 117 Blood Pressure Source [Left Arm] Automatic Cuff Automatic Cuff Blood Pressure Position [Left Arm] Sitting 02 Sat by Pulse Oximetry 98 99 Oxygen Delivery Method Room Air Room Air - Lab Data Lab results reviewed: Yes: I reviewed the patient's lab results. Lab Results 01/23/21 13:50: WBC 7.7, RBC 5.42, Hgb 15.0, Hct 45.9, MCV 84.7, MCH 27.8, MCHC 32.8, RDW 13.8, Plt Count 266, MPV 7.5, Neut % (Auto) 44.1, Lymph % (Auto) 31.1, [place] % (Auto) 5.8, Eos % (Auto) 17.9 H, Baso % (Auto) 1.1, Neut # (Auto) 3.4, Lymph # (Auto) 2.4, [place] # (Auto) 0.5, Eos # (Auto) 1.4 H, Baso # (Auto) 0.1, ESR 8 01/23/21 13:50: Sodium 136, Potassium 3.9, Chloride 98, Carbon Dioxide 30, Anion Gap 11.9, BUN 17, Creatinine 0.90, Estimated Creat Clear 122, Estimated GFR 90, Est GFR ( Amer) 109, Glucose 88, Calcium 9.3, Total Bilirubin 0.3, AST 28, ALT 26, Alkaline Phosphatase 71, C-Reactive Protein 24.0 H, Total Protein 7.7, Albumin 4.6, Globulin 3.1, Albumin/Globulin Ratio 1.5 01/23/21 13:50: Lactate 1.0 Result diagrams: 01/23/21 13:50 01/23/21 13:50 Orders (Tests/Meds): ED MEDICATIONS Discontinued Medications Generic Name Dose Route Start Last Admin Trade Name Freq PRN Reason Stop Dose Admin Cephalexin HCl 500 mg 01/23/21 14:34 Cephalexin 500mg Capsule PO 01/23/21 14:35 ONCE ONE Protocol Trimethoprim/Sulfamethoxazole 1 each 01/23/21 14:33 Sulfa/Trimethoprim 1 Tablet PO 01/23/21 14:34 ONCE ONE Protocol ORDERS Category Date Time Status Blood Culture Stat Micro 01/23/21 13:50 Received Wound Culture and Gram Stain Stat Micro 01/23/21 13:12 Results Medical Decision Narrative: Patient initially seen in urgent treatment center. Patient with cellulitis of the right foot and associated draining abscess. There is no global joint swelling that would suggest septic joint. Patient is afebrile with no leukocytosis. Marked cellulitic area with skin marker, advised to stop taking amoxicillin and start on Bactrim and Keflex. I stressed the importance of follow-up with primary care on Tuesday or Tuesday for reevaluation and wound check. Encouraged to return for worsening symptoms or fever. Wound/Laceration HPI - General Chief Complaint: Wound/Laceration Stated Complaint: possible spider bite on rt foot Time Seen by Provider: 01/23/21 14:43 Mode of Arrival: Ambulatory Source of Information: Patient Limit
[2021-01-23 14:47] LABS: Erythrocyte Sedimentation Rate 8 mm/hr (0-15)
[2021-01-23 15:29] VITALS: BP 125/64; PULSE 89; RESP 18; TEMP 36.6; O2SAT 98
== END 2021-01-23 15:31 | disposition home or self-care (01) ==
LOC: UTC 12:35 → ER 13:48
PROVIDERS: Nurse Practitioner Family; Emergency Provider Emergency Medicine
DX: L03.116 Cellulitis of left lower limb (principal); E78.5 Hyperlipidemia, unspecified; I10 Essential (primary) hypertension; F17.210 Nicotine dependence, cigarettes, uncomplicated
CPT/HCPCS: 80053; 83605; 85025; 85651; 86140; 87040; 87070; 87077; 87186; 87205; 99283

== ENCOUNTER 2023-04-18 10:26 | Emergency (ER) | payer SELFPAY ==
[2023-04-18 10:27] VITALS: BP 169/101; PULSE 80; RESP 16; TEMP 36.4; O2SAT 80; BMI 27.1
--- NOTE | 2023-04-18 10:35 | PC.NURSE ---
DR JONES AT BEDSIDE
--- NOTE | 2023-04-18 10:38 | XR_ITS ---
FINAL REPORT CLINICAL HISTORY: right hand cut on copper piping- palm area is cut COMPARISON: None FINDINGS: RIGHT HAND Three views demonstrate no acute fracture or dislocation. There is a healing oblique fracture of the distal 5th metacarpal. The hand is held in partial flexion. The visualized joint spaces are normally aligned. No radiopaque foreign body identified. IMPRESSION: No acute bony abnormality. No radiopaque foreign body identified. Reviewed, Interpreted and Dictated by Hector Solares MD Transcribed by Isela Saldana Authenticated and . [facility]
--- NOTE | 2023-04-18 10:43 | HMH.EDGENADL ---
Discharge Plan Disposition Patient Disposition: Home, Self-Care Prescriptions Prescriptions: New cefadroxil 500 mg capsule 500 mg PO BID 5 Days Qty: 10 0RF No Action acetaminophen 500 MG tablet 1,000 mg PO Q8HP PRN (Reason: pain) sulfamethoxazole-trimethoprim 1 EACH tablet 1 each PO BID Qty: 14 0RF cephalexin 500 MG tablet 500 mg PO QID Qty: 28 0RF Referrals Follow up/Referrals: Provider,Referral, MD [Primary Care Provider] - See instructions Clinical Impressions Clinical Impression: Hand laceration Qualifiers: Encounter type: initial encounter Foreign body presence: without foreign body Laterality: right Qualified Code(s): S61.411A - Laceration without foreign body of right hand, initial encounter Instructions Patient Instructions: DI for Laceration Repair Discharge ED Provider: Dany Hoff General Adult HPI General Chief complaint: Wound/Laceration Stated complaint: AO04/17, lac on Rt hand Time Seen by Provider: 04/18/23 10:30 Mode of Arrival: Ambulatory Source of Information: Patient Limitations: No Limitations Description of Symptoms (Recalled from ER Triage Doc. by RN): pt to the ED with a laceration to his right palm. pt reports he cut it trying to tighten doen a piece of metal last night. History of Present Illness HPI narrative: This is an otherwise healthy gentleman presenting with right hand pain. 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 Last tetanus vaccination he was unable to recall. Denies any other trauma. Bleeding was hemostatic largely shortly thereafter. Patient washed out minimally, but has not put anything on it or taking anything for pain. Currently stating he has mild to moderate pain when moving or extending his thumb. No acute complaints otherwise. Related Data Home Medications Medication Instructions Recorded Confirmed acetaminophen 500 mg tablet 1,000 mg PO Q8HP PRN pain 01/23/21 01/23/21 Previous Rx's Medication Instructions Recorded cephalexin 500 mg tablet 500 mg PO QID #28 tabs 01/23/21 sulfamethoxazole 800 1 each PO BID #14 tabs 01/23/21 mg-trimethoprim 160 mg tablet cefadroxil 500 mg capsule 500 mg PO BID 5 days #10 caps 04/18/23 Allergies Allergy/AdvReac Type Severity Reaction Status Date / Time No Known Allergies Allergy Verified 07/18/20 10:23 [facility] Disclaimer: The information contained in this section may have been updated after the patient was seen, as this information can be updated by other users. Social History Smoking Status: Current every day smoker tobacco type: cigarettes packs per day: 1 second hand exposure: Yes alcohol intake: former substance use type: marijuana current occupational status: employed Travel in the last 8 weeks: None household members: family housing: apartment current occupational exposures/hazards: Yes caffeine: No ROS Obtained: Yes All systems reviewed & no additional complaints except as documented Physical Exam General General appearance: alert Respiratory Respiratory exam: Absent respiratory distress Cardiovascular Cardiovascular exam: Present regular rate and normal rhythm Extremities Exam Extremities exam: Present tenderness and other (2 cm laceration beginning on thenar eminence of right palm extending through hypothenar eminence. Superficial laceration just through epidermis for additional 3 to 4 cm) Neurological Exam Neurological exam: Present alert; Absent motor sensory deficit Skin Skin exam: Absent intact Medical Decision Making Medical Records Medical records reviewed: Yes I reviewed the patient's medical records. Saimr Inquiry Pt receiving controlled substance: No Samir was queried for this patient: No Vital Signs: 04/18/23 10:27 Temperature 97.6 F Temperature Source Oral Pulse Rate [Left Radial
--- NOTE | 2023-04-18 10:53 | PC.NURSE ---
rad at BS for portable xray
--- NOTE | 2023-04-18 10:53 | PC.NURSE ---
XR AT BEDSIDE
[2023-04-18 11:52] VITALS: BP 159/87; PULSE 81; RESP 16; TEMP 36.7; O2SAT 98
== END 2023-04-18 11:57 | disposition home or self-care (01) ==
PROVIDERS: Emergency Provider Emergency Medicine
DX: S61.411A Laceration without foreign body of right hand, initial encounter (principal); F17.210 Nicotine dependence, cigarettes, uncomplicated; W26.8XXA Contact with other sharp object(s), not elsewhere classified, initial encounter; Z23 Encounter for immunization
CPT/HCPCS: 12001; 73130; 90715; 96372; 99283; 99284

== ENCOUNTER 2023-06-02 14:27 | Emergency (ER) | payer SELFPAY ==
[2023-06-02] VITALS (12 sets, daily range): BP systolic 109–141; BP diastolic 69–83; PULSE 71–91; RESP 16–18; TEMP 37.1–37.9; O2SAT 96–100; BMI 27.1
--- NOTE | 2023-06-02 15:10 | PC.NURSE ---
dr. zamora at BS
--- NOTE | 2023-06-02 15:12 | XR_ITS ---
FINAL REPORT CLINICAL HISTORY: CP, malaise FINDINGS: SINGLE-VIEW CHEST The heart size is normal. The mediastinum is normal. The lungs are clear. There is no pneumothorax. IMPRESSION: No acute cardiopulmonary process. Reviewed, Interpreted and Dictated by Shon Bojorquez III, MD Transcribed by Mora Allen Authenticated and [facility]
[2023-06-02 15:14] LABS: Coronavirus 19, PCR Not Detected (NotDetected); Influenza A, PCR Not Detected (NotDetected); Influenza B, PCR Not Detected (NotDetected)
[2023-06-02 15:14] LABS: Microscopic, Urine URINE MICROSCOPIC (MICROSCOPIC)
--- NOTE | 2023-06-02 15:14 | HMH.EDGENADL ---
Discharge Plan Disposition Patient Disposition: Home, Self-Care Condition: Good Prescriptions Prescriptions: New cefadroxil 500 mg capsule 500 mg PO BID 7 Days Qty: 14 0RF No Action cefadroxil 500 mg capsule 500 mg PO BID 5 Days Qty: 10 0RF acetaminophen 500 MG tablet 1,000 mg PO Q8HP PRN (Reason: pain) sulfamethoxazole-trimethoprim 1 EACH tablet 1 each PO BID Qty: 14 0RF cephalexin 500 MG tablet 500 mg PO QID Qty: 28 0RF Referrals Follow up/Referrals: Provider,Referral, MD [Primary Care Provider] - See instructions Clinical Impressions Clinical Impression: Acute UTI Instructions Patient Instructions: DI for Urinary Tract Infection (UTI) Discharge ED Provider: Maria Eugenia Hodge General Adult HPI General Chief complaint: Weakness Stated complaint: headache dizzieness, numbness in hands Time Seen by Provider: 06/02/23 15:03 Mode of Arrival: Wheelchair Source of Information: Patient Limitations: No Limitations Description of Symptoms (Recalled from ER Triage Doc. by RN): pt presents to ED stating he believes he has lyme disease. pt reports fever. pt states his dog recently had lyme disease. pt reports finding a few ticks on him recently. pt reports burning all over. History of Present Illness HPI narrative: Patient is a 52yoM with PMHx significant for unmedicated HTN, DM who presents to the ED with complaints of fevers, chills, fatigue, and malaise. Patient notes that for the past week, he has been having progressively worsening symptoms including fevers, chills, fatigue, malaise. Patient notes that his dog recently from Lyme disease and he is also concerned for Lyme disease. Patient notes that he is exposed to ticks frequently, but checks himself regularly. Patient denies any tick that has been on him for more than 24 hours. Patient notes that today, he experienced chest pain which almost caused him to syncopize, but never truly passed out. Related Data Home Medications Medication Instructions Recorded Confirmed acetaminophen 500 mg tablet 1,000 mg PO Q8HP PRN pain 01/23/21 01/23/21 Previous Rx's Medication Instructions Recorded cephalexin 500 mg tablet 500 mg PO QID #28 tabs 01/23/21 sulfamethoxazole 800 1 each PO BID #14 tabs 01/23/21 mg-trimethoprim 160 mg tablet cefadroxil 500 mg capsule 500 mg PO BID 5 days #10 caps 04/18/23 cefadroxil 500 mg capsule 500 mg PO BID 7 days #14 caps 06/02/23 Allergies Allergy/AdvReac Type Severity Reaction Status Date / Time No Known Allergies Allergy Verified 07/18/20 10:23 [facility] Disclaimer: The information contained in this section may have been updated after the patient was seen, as this information can be updated by other users. Social History Smoking Status: Current every day smoker tobacco type: cigarettes packs per day: 1 second hand exposure: Yes alcohol intake: former substance use type: marijuana current occupational status: employed Travel in the last 8 weeks: None household members: family housing: apartment current occupational exposures/hazards: Yes caffeine: No ROS Obtained: Yes All systems reviewed & no additional complaints except as documented Constitutional Constitutional: Reports chills, Reports fatigue and Reports fever(s) Cardiovascular Cardiovascular: Reports chest pain Endocrine Endocrine: Reports fatigue Physical Exam General General appearance: alert and in no apparent distress Head Head exam: atraumatic, normocephalic and normal inspection Eye Eye exam: Present normal appearance, PERRL, EOMI, scleral icterus and nystagmus ENT ENT exam: Present normal exam, mucous membranes moist and normal external ear exam Neck Neck exam: Present normal inspection, full ROM and trachea midline Chest Chest inspection: Present normal inspection and symmetric chest wall rise; Absent tenderness Respiratory Respiratory exam: Present normal lung sounds bilaterall
[2023-06-02 15:20] LABS: Appearance,Urine CLEAR (Clear); Bilirubin,Urine Negative (Negative); Blood, Urine 2+ (Negative); Color,Urine YELLOW (Yellow); Glucose,Urine (UA) Negative (Negative); Ketones,Urine Negative (Negative); Leukocyte Esterase,Urine 3+ (Negative); Nitrate,Urine POSITIVE (Negative); Protein,Urine 2+ (Negative); Specific Gravity, Urine <= 1.005 (1.005-1.030)
[2023-06-02 15:35] LABS: Basophils # 0.1 K/mm3 (0-0.2); Basophils % 0.5 % (0.1-2.0); Eosinophils # 0.2 K/mm3 (0.0-0.4); Eosinophils % 1.9 % (0.1-12.0); Hematocrit 45.6 % (42.0-52.0); Lymphocytes # 1.9 K/mm3 (0.7-4.5); Mean Corpuscular HGB Conc 32.8 g/dL (31.8-35.4); Mean Corpuscular Hemoglobin 26.5 pg (27.0-31.2); Mean Corpuscular Volume 80.7 fl (80-94); Mean Platelet Volume 8.3 fl (7.4-10.4); Monocytes # 0.7 K/mm3 (0.1-1.0); Monocytes % 6.7 % (1.7-9.3); Neutrophils # 7.3 K/mm3 (1.8-7.8); Neutrophils % 71.9 % (37.0-80.0); Platelet Count 342 K/mm3 (142-424); Red Blood Count 5.65 M/mm3 (4.60-6.20); Red Cell Distribution Width 13.6 % (11.5-17.5); White Blood Count 10.2 K/mm3 (4.8-10.8)
[2023-06-02 15:37] LABS: Alanine Aminotransferase 50 U/L (12-78); Albumin Level 4.1 g/dl (3.5-5.0); Albumin/Globulin Ratio 1.1 (1.1-1.8); Alkaline Phosphatase 100 U/L (38-126); Anion Gap 13.8 mEq/L (5-15); Aspartate Amino Transferase 41 U/L (17-59); Bilirubin,Total 1.3 mg/dl (0.2-1.3); Blood Urea Nitrogen 16 mg/dl (9-20); Calcium 8.9 mg/dl (8.4-10.2); Carbon Dioxide 26 mmol/L (22.0-30.0); Chloride 96 mmol/L (98-107); Creatinine Clearance Estimated 103 mL/min (50-200); Estimated Glomerular Filt Rate 71 ml/min (>60); GFR (African American) 86 ML/MIN (>60); Globulin 3.9 g/dL (1.3-3.2); Glucose 87 mg/dl (74-100); Sodium 133 mmol/L (136-145)
--- NOTE | 2023-06-02 15:37 | PC.NURSE ---
rad notified of xray order
[2023-06-02 15:42] LABS: Lactic Acid 2.3 mmol/L (0.7-2.1)
[2023-06-02 15:43] LABS: Potassium 2.8 mmoL/L (3.5-5.1)
--- NOTE | 2023-06-02 15:44 | PC.NURSE ---
Lab called critical on patient. Potassium 2.8
[2023-06-02 15:50] LABS: Troponin I < 0.01 ng/ml (0.00-0.034)
[2023-06-02 16:20] LABS: Bacteria,Urine 2+ /lpf; WBC,Urine TNTC #/hpf (0-3)
--- NOTE | 2023-06-02 16:35 | PC.NURSE ---
rounded on pt, pt sleeping
--- NOTE | 2023-06-02 18:03 | PC.NURSE ---
2 hr troponin sent to lab.
[2023-06-02 18:30] LABS: Troponin I < 0.01 ng/ml (0.00-0.034)
[2023-06-02 19:40] LABS: Reflex Lactic Add Lactic Reflex
== END 2023-06-02 19:30 | disposition home or self-care (01) ==
PROVIDERS: Emergency Provider Emergency Medicine
DX: R51.9 Headache, unspecified (principal); R42 Dizziness and giddiness; N39.0 Urinary tract infection, site not specified; I10 Essential (primary) hypertension; E11.9 Type 2 diabetes mellitus without complications; F17.210 Nicotine dependence, cigarettes, uncomplicated
CPT/HCPCS: 36415; 71045; 80053; 81001; 83605; 84484; 85025; 87040; 87086; 87088; 87186; 87636; 96360; 99285

== ENCOUNTER 2024-06-09 14:38 | Emergency (ER) | payer SELFPAY ==
[2024-06-09 14:39] VITALS: BP 161/97; PULSE 93; RESP 18; TEMP 36.8; O2SAT 98; BMI 24.4
--- NOTE | 2024-06-09 14:59 | PC.NURSE ---
DR GOLDMAN AT BEDSIDE
--- NOTE | 2024-06-09 15:02 | XR_ITS ---
PROCEDURE INFORMATION: Exam: XR Left Ankle Exam date and time: 06/09/2024 3:06 PM Age: 53 years old Clinical indication: Pain; Ankle; Left; Additional info: Pain, injury TECHNIQUE: Imaging protocol: Radiologic exam of the left ankle. Views: 3 or more views. COMPARISON: CR XR ANKLE LT MIN 3V 06/09/2024 3:06 PM FINDINGS: Bones/joints: No acute fracture or dislocation. Ankle mortise is intact. Small dorsal calcaneal spur. Soft tissues: Normal. IMPRESSION: Small calcaneal spur.
--- NOTE | 2024-06-09 15:02 | XR_ITS ---
PROCEDURE INFORMATION: Exam: XR Left Tibia and Fibula Exam date and time: 06/09/2024 3:06 PM Age: 53 years old Clinical indication: Pain; Lower leg; Left; Additional info: Pain, injury TECHNIQUE: Imaging protocol: Radiologic exam of the left tibia and fibula. Views: 2 views. COMPARISON: CR XR ANKLE LT MIN 3V 06/09/2024 3:06 PM FINDINGS: Bones/joints: No acute fracture or dislocation. Small dorsal calcaneal spur. Normal bone mineralization. Soft tissues: Normal. IMPRESSION: Small calcaneal spur.
--- NOTE | 2024-06-09 15:05 | XR_ITS ---
PROCEDURE INFORMATION: Exam: XR Left Knee Exam date and time: 06/09/2024 3:06 PM Age: 53 years old Clinical indication: Pain; Knee; Left; Additional info: Pain, injury TECHNIQUE: Imaging protocol: Radiologic exam of the left knee. Views: 3 views. COMPARISON: CR XR KNEE LT 3V 06/09/2024 3:06 PM FINDINGS: Bones/joints: No acute fracture or dislocation. Minor tibial spine spurring. Normal bone mineralization. Soft tissues: No soft tissue swelling or effusion. Vasculature: Faint arterial calcification. IMPRESSION: No acute findings.
--- NOTE | 2024-06-09 15:11 | PC.NURSE ---
XR AT BEDSIDE
--- NOTE | 2024-06-09 15:43 | HMH.EDGENADL ---
Discharge Plan Disposition Patient Disposition: Home, Self-Care Condition: Good Prescriptions Prescriptions: No Action cefadroxil 500 mg capsule 500 mg PO BID 5 Days Qty: 10 0RF acetaminophen 500 MG tablet 1,000 mg PO Q8HP PRN (Reason: pain) sulfamethoxazole-trimethoprim 1 EACH tablet 1 each PO BID Qty: 14 0RF cephalexin 500 MG tablet 500 mg PO QID Qty: 28 0RF cefadroxil 500 mg capsule 500 mg PO BID 7 Days Qty: 14 0RF Referrals Follow up/Referrals: Lobito Damian DO [Staff Physician] - See instructions Provider,Referral, [Primary Care Provider] - See instructions Activity Restrictions/Add. Instructions Additional Instructions/Restrictions: You were evaluated in the emergency department today. Please take Tylenol and ibuprofen at home as needed for pain. Use the crutches as needed to offload weight from your extremity if you are having significant pain. Follow-up closely with your primary care provider as well as with orthopedics for further evaluation and management if you continue to have pain. Rest, ice, and elevate your leg to help reduce pain and swelling. Return to the emergency department for new or worsening symptoms. Clinical Impressions Clinical Impression: Strain of left calf muscle Stand Alone Forms Stand Alone Forms: Work/School Release Instructions Patient Instructions: DI for Muscle Strain Print Language Print Language: Angolan Discharge ED Provider: Saida Flores General Adult HPI General Chief complaint: Extremity Problem,Nontraumatic Stated complaint: left calf pain/discoloration Time Seen by Provider: 06/09/24 14:58 Mode of Arrival: Ambulatory Source of Information: Patient Limitations: No Limitations Description of Symptoms (Recalled from ER Triage Doc. by RN): Patient reports pain and swelling of his left calf muscle since 430 this morning. History of Present Illness HPI narrative: This patient is a 53-year-old male who denies significant past medical history presenting to the emergency department for evaluation with concern for left calf pain. Patient reports that he was fine until he tried to step up onto a high step earlier this morning. He states that he felt a pop in his left calf and then had pain with weightbearing of the left lower extremity. He is able to walk but has been using a big stick as a cane for assistance. No significant fall or injury associated. No head injury or loss of consciousness. He does not take any blood thinners. He denies any significant limitations in range of motion, numbness, tingling, or other concerns. He has no pain anywhere else aside from his left calf. Related Data Home Medications ?Medication ?Instructions ?Recorded ?Confirmed acetaminophen 500 mg tablet 1,000 mg PO Q8HP PRN pain 01/23/21 01/23/21 Previous Rx's ?Medication ?Instructions ?Recorded cephalexin 500 mg tablet 500 mg PO QID #28 tabs 01/23/21 sulfamethoxazole 800 1 each PO BID #14 tabs 01/23/21 mg-trimethoprim 160 mg tablet cefadroxil 500 mg capsule 500 mg PO BID 5 days #10 caps 04/18/23 cefadroxil 500 mg capsule 500 mg PO BID 7 days #14 caps 06/02/23 Allergies Allergy/AdvReac Type Severity Reaction Status Date / Time No Known Allergies Allergy Verified 07/18/20 10:23 [facility] Disclaimer: The information contained in this section may have been updated after the patient was seen, as this information can be updated by other users. Social History Smoking Status: Current every day smoker tobacco type: cigarettes packs per day: 1 second hand exposure: Yes alcohol intake: former substance use type: marijuana current occupational status: employed Travel in the last 8 weeks: None household members: family housing: apartment current occupational exposures/hazards: Yes caffeine: No ROS Obtained: Yes All systems reviewed & no additional complaints except as documented Physical Exam General General appearance: alert and in no apparent distress Head Head exam: atraumatic and normocephalic Eye Eye exam: Present normal appearance, PERRL and EOMI ENT ENT exam: Present normal exam, normal oropharynx, mucous membranes moist and normal external ear exam Neck Neck exam: Present normal inspection, full ROM and trachea midline; Absent tenderness Chest Chest inspection: Present normal inspection and symmetric chest wall rise; Absent tenderness Respiratory Respiratory exam: Present normal lung sounds bilaterally; Absent respiratory distress, wheezes, stridor or accessory muscle use Cardiovascular Cardiovascular exam: Present regular rate and normal rhythm Abdominal Exam Abdominal exam: Present soft; Absent distention, tenderness or guarding Extremities Exam Extremities exam: Present full ROM, tenderness, normal capillary refill, edema and other (Tenderness to palpation and mild soft tissue swelling of the left proximal gastrocnemius. Patient has full intact range of motion, including flexion and extension of the knee as well as dorsiflexion and plantarflexion of the ankle. He is neurovascularly intact distally.) Back Exam Back exam: Present normal inspection and full ROM; Absent tenderness Neurological Exam Neurological exam: Present alert, oriented X3, CN II-XII intact and normal gait; Absent motor sensory deficit Psychiatric Psychiatric exam: Present normal affect and normal mood Skin Skin exam: Present warm and dry Medical Decision Making Medical Records Medical records reviewed: Yes I reviewed the patient's medical records. Samir Inquiry Pt receiving controlled substance: No Vital Signs: 06/09/24 14:39 06/09/24 16:41 Temperature 98.2 F 98.2 F Temperature Source Oral Oral Pulse Rate 88 Pulse Rate [Radial] 93 H Respiratory Rate 18 16 Blood Pressure 148/70 H Blood Pressure [Right Arm] 161/97 H Blood Pressure Mean [Right Arm] 118 Blood Pressure Source Automatic Cuff Blood Pressure Source [Right Arm] Automatic Cuff Blood Pressure Position Sitting Blood Pressure Position [Right Arm] Sitting 02 Sat by Pulse Oximetry 98 Oxygen Delivery Method Room Air Room Air Lab Data Lab results reviewed: Yes I reviewed the patient's lab results. Orders (Tests/Meds): ED MEDICATIONS Discontinued Medications Generic Name Dose Route Start Last Admin Trade Name Freq PRN Reason Stop Dose Admin Acetaminophen 1,000 mg 06/09/24 15:47 06/09/24 15:53 Acetaminophen 500mg Tab PO 06/09/24 15:48 1,000 mg ONCE ONE Administration Ibuprofen 800 mg 06/09/24 15:47 06/09/24 15:53 Ibuprofen 400 Mg Tablet PO 06/09/24 15:48 800 mg ONCE ONE Administration ORDERS Category Date Time Status XR ankle LT min 3V Stat Exams 06/09/24 15:02 Completed XR knee LT 3V Stat Exams 06/09/24 15:05 Completed XR tibia fibula LT 2V Stat Exams 06/09/24 15:02 Completed Medical Decision Narrative: In summary, this patient is a 53-year-old male presenting to the Emergency Department for evaluation of acute traumatic left calf pain. Differential diagnoses considered include but are not limited to Achilles rupture, gastroc tear, musculoskeletal strain/sprain, bursitis, fracture. Ruling out the most morbid conditions drove assessment. On exam, the patient is well-appearing with intact range of motion. No indication for Achilles rupture based on reassuring exam. He is neurovascularly intact. Consider diagnosis of DVT with calf pain, however this was acute onset in the setting of a strain/injury, so I do not feel this is likely. workup included x-rays of the left knee, tib-fib, and ankle. Patient was given oral Tylenol and ibuprofen for pain. I independently interpreted x-ray prior to the radiologist read and noted no acute fracture. Please see their read for final interpretation. On reassessment, the patient is resting comfortably and is neurovascularly intact. He is able to ambulate and put weight on his extremity without issue. He does have some pain with weighted flexion of his left knee. I offered crutches for offloading and also provided him with an Andry wrap for compression. Advised that he follow-up closely with orthopedics as well as primary care. At this time, feel we have excluded life-threatening pathology and he is appropriate for discharge home with instructions for supportive management of likely muscle injury. Strict return precautions were given. Critical Care Critical Care Time Critical Care Time: No
[2024-06-09] MEDS: IBUPROFEN 400 MG TABLET 800 MG PO (15:53)
[2024-06-09] MEDS: ACETAMINOPHEN 500MG TAB 1000 MG PO (15:53)
--- NOTE | 2024-06-09 16:31 | PC.NURSE ---
PT AMBULATING IN [place] WITHOUT DIFFICULTY
--- NOTE | 2024-06-09 16:40 | PC.NURSE ---
Patient refused crutches.
[2024-06-09 16:41] VITALS: BP 148/70; PULSE 88; RESP 16; TEMP 36.8; O2SAT 98
== END 2024-06-09 16:42 | disposition home or self-care (01) ==
PROVIDERS: Emergency Provider Emergency Medicine
DX: S86.812A Strain of other muscle(s) and tendon(s) at lower leg level, left leg, initial encounter (principal); X50.0XXA Overexertion from strenuous movement or load, initial encounter; M79.662 Pain in left lower leg
CPT/HCPCS: 73562; 73590; 73610; 99283